=== PATIENT | female | born 1955 | race Caucasian/White ===

== ENCOUNTER 2023-07-09 10:04 | Day surgery (SDC) | payer MEDICARE, OTHER ==
[2023-07-03 15:03] VITALS: BMI 26.7
[~2023-07-09 10:04] MED LIST: HYDROmorphone 0.5 MG/0.5 ML SYRINGE IVP PRN; LACTATED RINGERS 1,000 ML IV SCH; LIDOCAINE 1% (10MG/ML) FOR IV START INTRADERMA PRN
[2023-07-09] MEDS: SODIUM CHLORIDE 0.9% 1,000 ML IV ONE (11:22)
[2023-07-09] MEDS: ONDANSETRON 4 MG/2 ML VIAL IVP ONE ×2 (11:23→14:41)
[2023-07-09 11:31] LABS: Anisocytosis Slight; Basophils % (A) 0 %; Eosinophils # (A) 0.1 k/uL (0-0.7); Eosinophils % (A) 1 %; HCT 33.6 % (34.0-46.0); HGB 10.9 gm/dL (11.4-16.0); Lymphocytes # (A) 0.6 k/uL (1.0-4.8); Lymphocytes % (A) 8 %; MCHC 32.4 g/dL (31.0-37.0); MCV 83.4 fL (80.0-100.0); Mean Platelet Volume 7.2; Monocytes # (A) 0.5 k/uL (0-1.0); Monocytes % (A) 6 %; Neutrophils # (A) 6.7 k/uL (1.3-7.7); Neutrophils % (A) 82 %; Platelet Count 259 k/uL (150-450); RBC 4.03 m/uL (3.80-5.40); RDW 16.6 % (11.5-15.5); WBC 8.1 k/uL (3.8-10.6)
[2023-07-09 11:34] VITALS: RESP 16
[2023-07-09 11:38] LABS: African American GFR (CKD) 68 (>60 ml/min/1.73 sqM); Anion Gap 5 mmol/L; Blood Urea Nitrogen 10 mg/dL (7-17); Carbon Dioxide 24 mmol/L (22-30); Chloride 102 mmol/L (98-107); Glucose 83 mg/dL (74-99); Non-African American GFR(CKD) 59 (>60 ml/min/1.73 sqM); Potassium 3.7 mmol/L (3.5-5.1); Sodium 131 mmol/L (137-145)
[2023-07-09] MEDS ORDERED: PROPOFOL 10 MG/ML 20 ML VIAL IV ONE (13:07)
[2023-07-09] MEDS ORDERED: fentaNYL (PF) 50 MCG/ML 2 ML AMP ONE (13:07)
[2023-07-09] MEDS ORDERED: LIDOCAINE 1% INJ 10MG/ML (20 ML MDV) ONE (13:07)
[2023-07-09] MEDS ORDERED: SUCCINYLCHOLINE CHLORIDE 200 MG/10 ML VIAL IV ONE (13:07)
[2023-07-09] MEDS: LIDOCAINE 1% INJ 10MG/ML (20 ML MDV) SQ ONE ×3 (13:33→13:49)
[2023-07-09] MEDS: ceFAZolin 1,000 MG in SODIUM CHLORIDE 0.9% 1,000 ML IRRIGATION ONE (14:12)
--- NOTE | 2023-07-09 14:33 | P.OP ---
Date of Procedure: 07/09/23 Preoperative Diagnosis: Vasculitis, Non functioning mediport Postoperative Diagnosis: same Procedure(s) Performed: Explantation of right Mediport Guidewire exchange and placement of new right Mediport via internal jugular access Anesthesia: ARIADNE Surgeon: Jeremias Lieberman Estimated Blood Loss (ml): 5 Pathology: none sent Condition: stable Disposition: PACU Indications for Procedure: 67 year old female with history of Vasculitis, chronic kidney disease and previous right sided Mediport presents to the operative suite for removal and replacement of Mediport. She states getting blood draws weekly and infusions and due to her poor venous system requires more permanent access. Description of Procedure: Operative narrative: After written and informed consent was obtained and all risks, benefits and competitions were described the patient was brought to the operative suite and laid in a supine position. The area of the right neck and chest was prepped and draped in the usual sterile fashion. Timeout was performed in normal fashion and antibiotics were administered prior to access. Local anesthetic was infused overlying the existing catheter at the right neck and a small incision was created over the catheter with a 15 blade scalpel. Dissection was carried down to the catheter and it was dissected free and grasped. Attention was then placed to the previous pocket and removal of the existing Mediport. An incision was created at the right chest overlying the port and dissection was carried down to the port through the capsule and the port was dissected free in a circumferential manner. The catheter was then cut and port was removed. Using the distal catheter a guidewire was placed and the catheter was removed under fluoroscopic guidance. Once removed a new 8F port was tunneled to the neck incision and breakaway sheath was placed under fluoroscopic guidance. The catheter was then placed through the breakaway sheath and the sheath was removed. The catheter was then cut to the appropriate length and the new port was placed within the revised pocket. The port was sutured to the fascia with 3-0 PDS suture. The port was assessed for patency and natalie and flushed easily and then were hep-locked. The pocket was then irri gated with antibiotic solution and the incisions were then closed in a multilayer fashion. Skin was cleansed and dressings placed. The patient tolerated procedure well and was sent to PACU for recovery.
--- NOTE | 2023-07-09 14:49 | FL ---
EXAMINATION TYPE: FL guided central line placemt Intraoperative/procedural fluoroscopic services were provided. Total fluoroscopy time is 59.1 seconds with a total of 3 submitted images to PACS. Please see the operative/procedural note for further details. DAP: 2.0878 Gycm2
[2023-07-09] MEDS: HYDROmorphone 0.5 MG/0.5 ML SYRINGE IVP ONE (14:52)
[2023-07-09 15:04] VITALS: TEMP 97.2
[2023-07-09 16:04] VITALS: BP 153/73; PULSE 83
== END 2023-07-09 16:14 ==
LOC: OR 10:04
PROVIDERS: ATTEND Surgery
DX: T82.514A Breakdown (mechanical) of infusion catheter, initial encounter (principal); I77.6 Arteritis, unspecified; N18.9 Chronic kidney disease, unspecified; Y83.8 Other surgical procedures as the cause of abnormal reaction of the patient, or of later complication, without mention of misadventure at the time of the procedure
CPT/HCPCS: 36583; 80048; 85025; 77001; C1788; J0330; J0690 ×2; J2405; J2001; J3010; J1642; J2704; J1170

== ENCOUNTER → 2024-03-27 | Outpatient (CLI) | payer MEDICARE, OTHER ==
--- NOTE | 2024-03-27 12:42 | CT ---
EXAMINATION TYPE: CT abdomen pelvis wo con DATE OF EXAM: 03/27/2024 COMPARISON: None CLINICAL INDICATION: Female, 68 years old with history of N39.9 UTI; PHH, incontence/ bladder infecti on TECHNIQUE: CT scan of the abdomen and pelvis is performed without oral or IV contrast. CT DLP: 1087.4 mGycm Automated exposure control for dose reduction was used. FINDINGS: Within the limitations of a non-contrast study, the following observations are made. The lungs are clear. There is surgical absence of the gallbladder. There is no biliary ductal dilatation. There is no organomegaly of the liver, pancreas, spleen or adrenal glands. There are no renal calcifications or hydronephrosis. There is a small hyperdense cyst of the anterior left kidney. The left kidney is moderately atrophic. The caliber of the abdominal aorta is normal and there is no retroperitoneal adenopathy or hemorrhage . The bowel loops are normal in caliber is no evidence of obstruction. No inflammatory changes are iden tified in the mesentery and there is no free intraperitoneal air or fluid. There is no pelvic mass, free fluid, abscess or adenopathy. There is mild diverticulosis of the colon without CT evidence of diverticulitis. There is surgical absence of uterus. There is a right hip prosthesis otherwise the osseous structures are intact. IMPRESSION: 1. Hyperdense cyst of the left kidney and moderate left renal atrophy. 2. No renal calcification or hydronephrosis. 3. Diverticulosis of the sigmoid colon but no evidence of acute diverticulitis. 4. Surgical absence of the gallbladder and uterus [facility], , 03/27/2024 12:40 PM
== END | disposition home or self-care (01) ==
LOC: RADCTMAIN 11:01
PROVIDERS: ATTEND Urology
CPT/HCPCS: 74176

== ENCOUNTER 2024-04-01 07:05 | Inpatient (IN) | payer MEDICARE, OTHER ==
[~2024-04-01 07:05] MED LIST changes: +GABAPENTIN 300 MG CAP PO PRN; -HYDROmorphone 0.5 MG/0.5 ML SYRINGE IVP PRN; -LACTATED RINGERS 1,000 ML IV SCH; +TRANEXAMIC 1,000 MG/100ML-NACL 1,000 MG in SALINE 1 100ML.BAG IVPB PRN; +fentaNYL (PF) 50 MCG/ML 2 ML AMP IV PRN; +fentaNYL (PF) 50 MCG/ML 2 ML AMP IVP PRN
[2024-04-01] MEDS: ACETAMINOPHEN TAB 500 MG TAB PO PRN (08:41)
[2024-04-01] MEDS: MELOXICAM 7.5 MG TAB PO PRN (08:41)
[2024-04-01] MEDS: DEXAMETHASONE SOD PHOSPHATE 4 MG/ML 1 ML VIAL IV ONE (08:42)
[2024-04-01] MEDS: ONDANSETRON 4 MG/2 ML VIAL IVP ONE (08:42)
[2024-04-01] MEDS: IV FLUID CONTINUATION 1,000 ML IV ONE (08:43)
[2024-04-01] MEDS: LACTATED RINGERS 1,000 ML IV SCH (08:43)
[2024-04-01] MEDS: HYDROCORTISONE SUCCINATE 100 MG/2 ML VIAL IV STA (08:43)
[2024-04-01] MEDS: MIDAZOLAM 2 MG/2 ML VIAL IV PRN (08:47)
[2024-04-01] MEDS ORDERED: NA PHOS,M-B/NA PHOS,DI-BA 133 ML ENEMA RECTAL PRN (08:53)
[2024-04-01] MEDS ORDERED: MAGNESIUM HYDROXIDE 2,400 MG/30 ML CUP PO PRN (08:53)
[2024-04-01] MEDS ORDERED: HYDROmorphone 0.5 MG/0.5 ML SYRINGE IVP PRN ×2 (08:53)
[2024-04-01] MEDS ORDERED: NALOXONE 0.4 MG/ML 1 ML VIAL IV PRN (08:53)
[2024-04-01] MEDS ORDERED: bisacodyL 10 MG SUPP RECTAL PRN (08:53)
--- NOTE | 2024-04-01 08:58 | P.ANPRN ---
Procedure Note - Anesthesia - Nerve Block Performed Left Adductor Canal Single Time Out Performed: Yes ([id number]) Date of Procedure: 04/01/24 Procedure Start Time: 08:50 Procedure Stop Time: 08:57 Location of Patient: PreOp Indication: Acute Post-Operative Pain, Requested by Surgeon Sedation Type: Sedate with meaningful contact maintained Preparation: Sterile Prep, Sterile Dressing Position: Supine Catheter: None Needle Types: Pajunk Needle Gauge: 21 Ultrasound used to visualize needle placement: Yes Ultrasound used to observe medication spread: Yes Injectate: 0.5% Ropivacaine (see comment for volume) (20 mL of 0.5% ropivacaine preservative-free injected after intermittent negative aspiration) Blood Aspirated: No Pain Paresthesia on Injection Noted: No Resistance on Injection: Normal Image Stored and Saved: Yes Events: Uneventful and Well Tolerated
--- NOTE | 2024-04-01 09:00 | P.ANPRN ---
Procedure Note - Anesthesia - Nerve Block Performed Left iPack Single Time Out Performed: Yes ([id number]) Date of Procedure: 04/01/24 Procedure Start Time: 08:50 Procedure Stop Time: 08:57 Location of Patient: PreOp Indication: Acute Post-Operative Pain, Requested by Surgeon Sedation Type: Sedate with meaningful contact maintained Preparation: Sterile Prep, Sterile Dressing Position: Supine Catheter: None Needle Types: Pajunk Needle Gauge: 21 Ultrasound used to visualize needle placement: Yes Ultrasound used to observe medication spread: Yes Injectate: 0.5% Ropivacaine (see comment for volume) (20 mL of block solution injected after intermittent negative aspiration , 10 mL of 0.5% ropivacaine mixed with 10 mL of preservative-free normal saline) Blood Aspirated: No Pain Paresthesia on Injection Noted: No Resistance on Injection: Normal Image Stored and Saved: Yes Events: Uneventful and Well Tolerated
[2024-04-01 09:19] LABS: Glucose,Whole Blood 75 mg/dL (70-110)
[2024-04-01] MEDS ORDERED: SODIUM CHLORIDE 0.9% (PF) 10 ML VIAL ONE (09:20)
[2024-04-01] MEDS ORDERED: ROCURONIUM 10 MG/ML (5 ML VIAL) IV ONE (09:20)
[2024-04-01] MEDS ORDERED: ROPIVACAINE 5 MG/ML 30 ML VIAL ONE (09:20)
[2024-04-01] MEDS ORDERED: TRANEXAMIC 1,000 MG/100ML-NACL PREMIX BAG ONE (09:20)
[2024-04-01] MEDS ORDERED: GLYCOPYRROLATE 0.2 MG/ML 2 ML VIAL ONE (09:20)
[2024-04-01] MEDS ORDERED: NEOSTIGMINE 1 MG/ML 10 ML VIAL ONE (09:20)
[2024-04-01] MEDS ORDERED: PHENYLEPHRINE 10 MG/ML VIAL ONE (09:20)
[2024-04-01] MEDS ORDERED: fentaNYL (PF) 50 MCG/ML 2 ML AMP ONE (09:20)
[2024-04-01] MEDS ORDERED: LIDOCAINE 1% INJ 10MG/ML (20 ML MDV) ONE (09:20)
[2024-04-01] MEDS ORDERED: PROPOFOL 10 MG/ML 20 ML VIAL IV ONE (09:20)
[2024-04-01] MEDS: ceFAZolin 1,000 MG in SODIUM CHLORIDE 0.9% 1,000 ML IRRIGATION ONE (09:49)
[2024-04-01 10:12] LABS: ALT 21 U/L (4-34); AST 18 U/L (14-36); African American GFR (CKD) 61 (>60 ml/min/1.73 sqM); Albumin 3.2 g/dL (3.5-5.0); Alkaline Phosphatase 73 U/L (38-126); Anion Gap 3 mmol/L; Blood Urea Nitrogen 19 mg/dL (7-17); Calcium 9.2 mg/dL (8.4-10.2); Carbon Dioxide 29 mmol/L (22-30); Chloride 104 mmol/L (98-107); Glucose 97 mg/dL (74-99); Non-African American GFR(CKD) 53 (>60 ml/min/1.73 sqM); Potassium 4.4 mmol/L (3.5-5.1); Sodium 136 mmol/L (137-145); Total Bilirubin 0.4 mg/dL (0.2-1.3); Total Protein 5.7 g/dL (6.3-8.2)
--- NOTE | 2024-04-01 10:33 | P.OP ---
Date of Procedure: 04/01/24 Preoperative Diagnosis: Severe osteoarthritis of the left knee with a valgus deformity Postoperative Diagnosis: Severe osteoarthritis of the left knee with a valgus deformity Procedure(s) Performed: Left total knee arthroplasty Implants: [employer] Journey II CR Oxinium Bi-cruciate stabilized femoral component size 4, left [employer] Journey nonporous tibial baseplate size 3, left [employer] Journey II, constrained articular insert, size 9 mm, Size 3-4, left [employer] Journey Iwona II resurfacing patellar component, oval, 29 mm All components were cemented using Palacos R bone cement The articulation is Oxinium on polyethylene Anesthesia: VALERIEA Surgeon: Stan José Social [employer] Political [employer] Professor #1: Bernie Luna Estimated Blood Loss (ml): 50 Pathology: none sent Condition: stable Disposition: PACU Indications for Procedure: The patient's knee is end-stage, and conservative management has failed. The operation of knee replacement has been discussed at length in the office, as well as potential risks and complications. These are inclusive of, but not limited to: Infection, bleeding, scarring, discomfort, stiffness, blood vessel and nerve damage, need for further surgery, failure to relieve symptoms, persistence, recurrence, or worsening of problems, loosening, dislocation, wear, blood clot, pulmonary embolism, , gait dysfunction, stiffness, and other risks as discussed in the office. Patient elects to proceed and the consent form has been signed. Operative Findings: The operative findings are consistent with severe osteoarthritis of the left knee with a valgus deformity Description of Procedure: The patient was seen in the preoperative area, the consent was reviewed and the operative site was marked with a skin marker. The patient verified the procedure and the operative site. An adductor canal pain catheter and an iPACK block were placed by anesthesia in the preoperative area. The patient was then brought to the operating room and positioned on the operating room table in the supine position. Preoperative antibiotics and a gram of tranexamic acid were given intravenously. A general anesthetic was administered by the anesthesia department. Care was taken to make sure that all pressure points were adequately padded. A tourniquet was placed on the upper thigh and the lower extremity was prepped with ChloraPrep and draped in usual sterile fashion. A universal time-out was then performed which confirmed the patient's name, surgical site, ALLERGIES, and consent. The lower extremity was then exsanguinated and tourniquet was inflated to 250 mmHg. A standard anterior midline approach to the knee was performed. The skin and subcutaneous tissue were sharply dissected down to the patellar tendon. A medial parapatellar arthrotomy was then performed. The knee was then extended, the patellar was everted, and the knee was flexed. The infra-patellar fat pad was removed in order to enhance exposure. The anterior horns of both menisci were excised, and a release was performed to the posterior medial aspect of the knee. On gross visual inspection, there was complete loss of articular cartilage in the medial and patellofemoral joint spaces. There was also significant cartilage damage in the lateral compartment. There were multiple periarticular osteophytes globally about the knee which were then removed with a Ronguer. The femoral canal was then opened with the 9.5 mm intramedullary drill. The 8 mm intramedullary nancy was then inserted into the femoral canal with the distal femoral cutting guide set for 5 of valgus. The distal femoral cutting block was then pinned in place. The intramedullary nancy was then removed, and the distal femur was then cut. The cutting block was then removed and the cut was checked for symmetry. The resected bone was then measured to confirm the appropriate distal femoral resection. Next, the sizing guide was then placed and set for 3 external rotation based off of the epicondylar axis and Madison's line. Pins were then placed and the drill holes, and the femur was sized with the sizing stylus. The pins were then removed, and the sizing guide was then removed. The spikes of the appropriate size femoral block was then placed into the predrilled holes, and malleted into place. Two 45 mm pins were then placed into the fixation holes on the cutting block. An bernice wing was then used to ensure there would be no notching with the anterior cut. The anterior condyles were cut without notching. The anterior chord cut was then performed, followed by the posterior cut, posterior chamfer cut, and the anterior chamfer cut. The collateral ligaments were protected during the entire process. The cutting block was then removed. Any remaining bone and osteophytes were removed from the femur with a Ronguer. Attention was then directed to the tibia. The remaining ACL was removed with a Ronguer, and the tibia was then gently subluxed forward with a large bent knee retractor. Any remaining menisci were excised. The posterior lateral corner was cauterized in order to coagulate the lateral geniculate artery. The extra medullary tibial cutting guide was then placed, set for the appropriate rotation, slope, and depth of resection. The proximal tibia cutting guide was then pinned in place. Proximal tibia was then cut and sized. A curved osteotome was then used to remove any posterior osteophytes from the distal femur. The femoral trial was placed. A reamer was then used to remove the intracondylar femoral bone the box guide. The CR box trial was then placed. The tibial trial was placed with the appropriate-sized insert. The knee was able to fully extend and flex to 130 and was stable throughout all range of mo tion. The knee was then extended and the patella was everted. Patella was then measured, and then using an osteotomy guide, the patella was cut at the appropriate level. The patellar component was sized. The patellar drill guide was placed and the patella was drilled. The patella trial was then placed. The knee was then taken through range of motion with the patella trial and the patella tracked normally using the no thumbs technique. The patella trial was then removed. The knee was then flexed and lug holes were drilled through the femoral trial and the femoral trial was then removed. The tibial was then re- exposed, and the tibial broach guide was then pinned in place after it was set for the appropriate rotation to allow for the most coverage without overhang. The tibia was then reamed and broached. The femoral canal was plugged with autologous bone. The cut surfaces of bone were then irrigated with pulsatile lavage. The knee was also irrigated with Irrisept solution. The components were then opened, the cement was mixed. Cement was placed on the backside of the femoral, tibial, and patellar components. Cement was then applied to the tibial surface and pressurized into the surface using finger pressurization technique. The tibial component was then applied and excess cement was removed after it was impacted securely noted to be flush with the cut surface. In similar fashion, the cement was applied to the cut femoral surface, pressurized and using finger pressurization the component was impacted in place. Excess cement was removed. The polyethylene spacer was then implanted and locked into position. Patellar component was then applied in a similar technique and the patellar clamp was used to hold patella in place while the cement hardened. The knee was held in full extension while the cement hardened. Once the cement had fully hardened, the knee was reinspected. Any other cement extrusion was removed the final range of motion testing showed range of motion from 0-130 with excellent stability, both medial and laterally and appropriate alignment of the leg. Patella tracked normally. After the cemented hardened, the tourniquet was released and hemostasis was obtained. A second gram of transexamic acid was given intravenously. The knee was again irrigated. The knee was again taken through range of motion and found to be stable throughout all range of motion of 0-130, and the patella tracked normally. The fascia was then closed with 0 Vicryl followed by #2 strata fix suture. The subcutaneous tissue was closed with 3-0 Vicryl and 3-0 strata fix. Exofin glue was used for the skin and placed with the knee in flexion. After the glue had dried, and Optafoam silver impregnated dressing was applied. A lightly compressive dressing was applied using web roll and Levi wrap. Patient was then transferred to the stretcher and taken to recovery room in stable condition. Sponge and needle counts were correct. The volunteer assistant CRISTINA Trujillo was required due the complexity surgery and the need for a skilled neurosurgical nurse. She assisted in positioning, draping, retraction, and closure of the wound.
[2024-04-01] MEDS: ONDANSETRON 4 MG/2 ML VIAL IVP PRN (11:10)
--- NOTE | 2024-04-01 11:32 | XR ---
EXAMINATION TYPE: XR knee limited LT DATE OF EXAM: 04/01/2024 11:28 AM INDICATION: Patient age:Female; 68 years old; Reason for study: Evaluation for Postop abnormality and alignment; PHH. COMPARISON: None. TECHNIQUE: The Left knee(s) was examined in frontal and lateral projections. FINDINGS: Status post total knee arthroplasty changes with hardware in appropriate alignment and in tact. No evidence of fracture. Subcutaneous lucencies and lucencies within the joint consistent with surgical changes. IMPRESSION: Status post total left knee arthroplasty changes with hardware intact and appropriate alignment. No f ractures identified. [facility], , 04/01/2024 11:30 AM
[2024-04-01] MEDS: HYDROmorphone 0.5 MG/0.5 ML SYRINGE IVP PRN ×2 (11:34→16:12)
[2024-04-01] MEDS ORDERED: CLINDAMYCIN 900 MG in DEXTROSE 5% IN WATER 50 ML IVPB SCH (12:00)
[2024-04-01] MEDS: SODIUM CHLORIDE 0.9% 1,000 ML IV SCH (12:54)
[2024-04-01] MEDS ORDERED: ARTIFICIAL TEARS-HYPROMELLOSE DROPS 15 ML BTL BOTH EYES PRN (14:46)
[2024-04-01] MEDS ORDERED: ALBUTEROL NEBULIZED 2.5 MG/3 ML INHALATION PRN (14:46)
[2024-04-01] MEDS ORDERED: LOPERAMIDE 2 MG CAP PO PRN (14:46)
[2024-04-01] MEDS ORDERED: NON FORMULARY DRUG (Fluocinolone Acetonide Oil [Fluocinolone Acetonide Oil 0.01% (Otic)] 2 BOTH EARS SCH (15:00)
--- NOTE | 2024-04-01 15:39 | P.CONS ---
History of Present Illness - Reason for Consult Consult date: 04/01/24 - History of Present Illness Patient is a 68-year-old female with history of COPD not on home oxygen, hypothyroidism, hyperlipidemia underwent left total knee arthroplasty on 04/01/2024. Patient stated that she has been having severe pain and mobility issue with her left knee for some time. Her past surgical history is s ignificant for right TKA x 2 and right total hip arthroplasty. Patient recently saw Dr. José and left TKA was scheduled for today. No intraoperative complications. Postop left knee x-ray is consistent with surgical changes and everything is intact with no evidence of fracture. Patient is currently postop day 0. There is moderate amount of pain in her left knee which she states is 6 out of 10. Otherwise patient denies any chest pain, shortness of breath, abdominal pain, nausea, vomiting. Internal medicine service is consulted for medical management of this patient. Review of systems: Pertinent positives and negatives as discussed in HPI, a complete review of systems was performed and all other systems are negative. Physical examination: Vital signs reviewed General: non toxic, no distress, appears at stated age, normal weight Derm: Surgical site is clean and intact. Cardiovascular: S1S2 reg, no murmur, positive dorsalis pedis pulse bilateral, no edema Lungs: CTA bilateral, no rhonchi, no rales, no accessory muscle use Abdominal: soft, nontender to palpation, no guarding Ext: muscle strength 5 out of 5 in all 4 extremities grossly, no gross muscle atrophy, no contractures, Neuro: CN II-XI grossly intact, no gross focal neuro deficits Psych: Alert, oriented, appropriate affect Assessment/Plan: Patient is a 68-year-old female with history of COPD not on home oxygen, hypothyroidism, hyperlipidemia underwent left total knee arthroplasty on 04/01/2024. Postop day 0 #Left knee pain status post left TKA Management including pain control as per orthopedic #Euvolemic hyponatremia Sodium 136, continue monitor BMP #CKD stage IIIa #Elevated creatinine Creatinine at baseline 1.07 GFR 53 Continue monitor BMP Chronic conditions: A-fib: Continue with Eliquis 5 mg p.o. twice daily COPD: Resume Ventolin as needed , Symbicort 2 puffs twice daily, prednisone 5 mg p.o. daily Urinary incontinence: Resume mirabegron GERD/acid reflux: Resume Protonix 40 mg p.o. twice daily Hypothyroidism: Resume Synthroid 50 mcg p.o. daily Anxiety: Resume trazodone 50 mg nightly DVT prophylaxis: Eliquis 5 mg p.o. twice daily I saw and evaluated the patient during the ji and critical portions of this encounter, and discussed the case in detail with the resident author of this note, I agree with the Assessment and Plan, and my changes, if any, are highlighted in blue. Past Medical History Past Medical History: Atrial Fibrillation, Asthma, COPD, CVA/TIA, GERD/Reflux, Hypertension, Renal Disease, Rheumatoid Arthritis (RA), Skin Disorder, Vascular Disorder Additional Past Medical History / Comment(s): Hx. falls, stage II kidney disease, Raynaud's, Lupus and connective tissue disease, rotator cuff issues to rt shoulder, hx Charles's Esophagus , vascularitis History of Any Multi-Drug Resistant Organisms: None Reported Past Surgical History: Cholecystectomy, Heart Catheterization With Stent, Joint Replacement, Orthopedic Surgery Additional Past Surgical History / Comment(s): Bilat shoulder, right hip, right knee x 2, bilat mediport placement, bilat. cataract surgery Past Anesthesia/Blood Transfusion Reactions: No Reported Reaction Additional Past Anesthesia/Blood Transfusion Reaction / Comm: Hx of blood transfusion-no reaction. Date of Last Stent Placement:: 08/09/23 Smoking Status: Former smoker - Past Family History Father Family Medical History: No Reported History Medications and Allergies Home Medications Medication Instructions Recorded Confirmed Type ARIPiprazole [Abilify] 2 mg PO DAILY 01/23/23 04/01/24 History Apixaban [Eliquis] 5 mg PO BID 01/23/23 04/01/24 History Bumetanide [BUMEX] 2 mg PO BID 01/23/23 04/01/24 History DULoxetine HCL [Cymbalta] 60 mg PO HS 01/23/23 04/01/24 History Fluticasone Nasal [place] [Flonase 1 spray EA NOSTRIL QA 01/23/23 04/01/24 History Nasal [place]] L.acidoph,Paracasei, B.lactis 1 cap PO BID 01/23/23 04/01/24 History [Probiotic] Levothyroxine Sodium [Synthroid] 50 mcg PO QAM 01/23/23 04/01/24 History Metoprolol Succinate [Metoprolol 12.5 mg PO DAILY 01/23/23 04/01/24 History Succinate ER] Mirabegron [Myrbetriq] 50 mg PO DAILY 01/23/23 04/01/24 History Montelukast [Singulair] 10 mg PO HS 01/23/23 04/01/24 History Potassium Chloride ER [K-Dur 20] 20 meq PO DAILY 01/23/23 04/01/24 History Pregabalin [Lyrica] 50 mg PO BID 01/23/23 04/01/24 History traMADol HCL 100 mg PO Q6H 01/23/23 04/01/24 History traZODone HCL [Desyrel] 50 mg PO HS 01/23/23 04/01/24 History traZODone HCL [Trazodone HCl] 300 mg PO HS 01/23/23 04/01/24 History Loperamide HCl [Loperamide] 2 mg PO DIRECTED PRN 07/03/23 04/01/24 History ALPRAZolam [Xanax] 0.5 mg PO TID 07/04/23 04/01/24 History Albuterol Inhaler [Ventolin Hfa 2 puff INHALATION Q4H PRN 07/04/23 03/27/24 History Inhaler] Butalb/APAP/Caff 50-325-40Mg 1 tab PO Q4H PRN 07/04/23 03/27/24 History [Fioricet 50-325-40] Fluticasone Propion/Salmeterol 1 inhalation PO BID 07/04/23 04/01/24 History [Advair 250-50 Diskus] predniSONE 5 mg PO DAILY 07/04/23 04/01/24 History tiZANidine HCL [Zanaflex] 2 mg PO Q8H PRN 07/04/23 03/27/24 History Aspirin 81 mg PO DAILY 03/27/24 04/01/24 History Carboxymethylcellulose Sodium 1 drop BOTH EYES Q8H PRN 03/27/24 03/27/24 History [Refresh Tears] Cetirizine HCl [Zyrtec] 10 mg PO DAILY 03/27/24 04/01/24 History Cholecalciferol [Vitamin D3 (25 5 tab PO DAILY 03/27/24 04/01/24 History Mcg = 1000 Iu)] Clopidogrel [Plavix] 75 mg PO DAILY 03/27/24 04/01/24 History Cyanocobalamin (Vitamin B-12) 1 tab PO DAILY 03/27/24 04/01/24 History [Vitamin B-12] Dicyclomine HCl 1 tab PO TID 03/27/24 04/01/24 History Docusate Sodium [Dok] 100 mg PO BID 03/27/24 04/01/24 History Ferrous Sulfate [Iron (65 MG 325 mg PO DAILY 03/27/24 04/01/24 History Elemental)] Lanolin/Mineral Oil [Eucerin 1 applic TOPICAL HS 03/27/24 04/01/24 History Original Lotion] Naloxone HCl 1 dose INTRANASAL DIRECTED PRN 03/27/24 03/27/24 History Naloxone HCl 1 ml IM DIRECTED PRN 03/27/24 03/27/24 History Omeprazole [PriLOSEC] 20 mg PO BID 03/27/24 04/01/24 History Sennosides/Docusate Sodium [Senna 2 tab PO BID 03/27/24 04/01/24 History Plus 8.6-50 mg Tablet] Vit C/E/Zn/Coppr/Lutein/Zeaxan 1 tab PO BID 03/27/24 04/01/24 History [Preservision Areds 2 Softgel] fluocinolone acetonide oiL 2 drops BOTH EARS Q48H 03/27/24 04/01/24 History [fluocinolone acetonide oiL 0.01% (Otic)] polyethylene glycoL 3350 [Miralax] 1 scoop PO BID 03/27/24 04/01/24 History Allergies Allergy/AdvReac Type Severity Reaction Status Date / Time cephalexin [From Keflex] Allergy Rash/Hives Verified 04/01/24 08:10 ciprofloxacin [From Cipro] Allergy Rash/Hives Verified 04/01/24 08:10 Penicillins Allergy Rash/Hives Verified 04/01/24 08:10 Sulfa (Sulfonamide Allergy "passed Verified 04/01/24 08:10 Antibiotics) out and quit breathing" Physical Exam Osteopathic Statement: *. No significant issues noted on an osteopathic structural exam other than those noted in the History and Physical/Consult. Vitals: Vital Signs Temp Pulse Pulse Resp BP Pulse Ox 04/01/24 13:41 98.1 F 57 L 16 121/71 99 04/01/24 12:04 60 16 145/67 04/01/24 11:48 61 16 135/61 96 04/01/24 11:33 63 18 162/69 99 04/01/24 11:18 62 18 156/66 100 04/01/24 11:03 97.3 F L 72 18 147/66 100 04/01/24 09:09 59 L 15 155/70 100 04/01/24 08:00 98.4 F 62 18 131/63 96 Intake and Output 04/01/24 04/01/24 04/01/24 06:59 14:59 22:59 Intake Total 751 Output Total 50 Balance 701 Intake: IV 751 Output: Estimated Blood Loss 50 Other: Weight 88.904 kg Results CBC & Chem 7: 04/01/24 08:31 Labs: Abnormal Lab Results - Last 24 Hours (Table) 04/01/24 Range/Units 08:31 Sodium 136 L (137-145) mmol/L BUN 19 H (7-17) mg/dL Creatinine 1.07 H (0.52-1.04) mg/dL Total Protein 5.7 L (6.3-8.2) g/dL Albumin 3.2 L (3.5-5.0) g/dL
[2024-04-01] MEDS: LEVOTHYROXINE 50 MCG TAB PO SCH (15:50)
[2024-04-01] MEDS: Mirabegron [Myrbetriq] 50 MG Tab.Er.24h PO SCH (15:50)
[2024-04-01] MEDS: FLUTICASONE NASAL 50MCG/SPRAY 16GM BTL EA NOSTRIL SCH (15:51)
[2024-04-01] MEDS: PANTOPRAZOLE 40 MG TABLET PO SCH (16:10)
[2024-04-01] MEDS: DICYCLOMINE 20 MG TAB PO SCH (16:10)
[2024-04-01] MEDS: CYANOCOBALAMIN 500 MCG TAB PO SCH (16:10)
[2024-04-01] MEDS: FERROUS SULFATE 325 MG TAB PO SCH (16:10)
[2024-04-01] MEDS: POTASSIUM CHLORIDE ER 20 MEQ TAB.ER PO SCH (17:26)
[2024-04-01] MEDS ORDERED: SENNOSIDES-DOCUSATE SODIUM 1 EACH TAB PO SCH (21:00)
[2024-04-01] MEDS: MONTELUKAST 10 MG TAB PO SCH (21:00)
[2024-04-01] MEDS: DOCUSATE 100 MG CAP PO SCH (21:00)
[2024-04-01] MEDS: DULoxetine HCL 60 MG CAPSULE.DR PO SCH (21:00)
[2024-04-01] MEDS: LACTOBACILLUS ACIDOPHILUS/PECT 1 EACH CAPSULE PO SCH (21:00)
[2024-04-01] MEDS: PREGABALIN 50 MG CAP PO SCH (21:00)
[2024-04-01] MEDS: MINERAL OIL-WHITE PETROLATUM 120 GM JAR TOPICAL SCH (21:01)
[2024-04-01] MEDS: SYMBICORT 80-4.5 MCG INHALER INHALATION SCH (21:57)
[2024-04-01] MEDS: traZODone HCL 50 MG TAB PO SCH (22:47)
[2024-04-01] MEDS: SENNOSIDES-DOCUSATE SODIUM 1 EACH TAB PO SCH (22:47)
[2024-04-02 08:44] LABS: Basophils # (A) 0.02 X 10*3/uL (0.00-0.10); Basophils % (A) 0.2 %; Eosinophils # (A) 0.03 X 10*3/uL (0.04-0.35); Eosinophils % (A) 0.3 %; HCT 29.8 % (37.2-46.3); HGB 9.1 g/dL (12.0-15.0); Lymphocytes # (A) 0.76 X 10*3/uL (0.90-5.00); Lymphocytes % (A) 7.6 %; MCH 26.1 pg (27.0-32.0); MCHC 30.5 g/dL (32.0-37.0); MCV 85.4 FL (80.0-97.0); Mean Platelet Volume 10.4 FL (9.5-12.2); Monocytes # (A) 0.59 X 10*3/uL (0.20-1.00); Monocytes % (A) 5.9 %; NRBC Per 100 WBC 0 X 10*3/uL (0.00-0.01); Neutrophils # (A) 8.58 X 10*3/uL (1.80-7.70); Neutrophils % (A) 85.2 %; Platelet Count 228 X 10*3/uL (140-440); RBC 3.49 X 10*6/uL (4.10-5.20); RDW 18.4 % (11.5-14.5); WBC 10.06 X 10*3/uL (4.50-10.00)
[2024-04-02] MEDS: ARIPiprazole 2 MG TAB PO SCH (10:17)
[2024-04-02] MEDS: APIXABAN 5 MG TAB PO SCH (10:17)
[2024-04-02] MEDS: CLOPIDOGREL 75 MG TAB PO SCH (10:18)
[2024-04-02] MEDS: CHOLECALCIFEROL 125 MCG (5000 IU) TABLET PO SCH (10:18)
[2024-04-02] MEDS: predniSONE 5 MG TAB PO SCH (10:18)
[2024-04-02] MEDS: METOPROLOL SUCCINATE (ER) 25 MG TAB.ER.24H PO SCH (10:57)
--- NOTE | 2024-04-02 11:32 | P.PN ---
Subjective Progress Note Date: 04/02/24 Subjective: Patient seen and examined at the bedside. No acute events overnight. All Systems reviewed and pertinent positives and negatives noted in HPI, all other symptoms are negative Objective: Physical examination: Vital signs reviewed General: non toxic, no distress, appears at stated age, normal weight Derm: Surgical site is clean and intact. Cardiovascular: S1S2 reg, no murmur, positive dorsalis pedis pulse bilateral, no edema Lungs: CTA bilateral, no rhonchi, no rales, no accessory muscle use Abdominal: soft, nontender to palpation, no guarding Ext: muscle strength 5 out of 5 in all 4 extremities grossly, no gross muscle atrophy, no contractures, Neuro: CN II-XI grossly intact, no gross focal neuro deficits Psych: Alert, oriented, appropriate affect Labs: WBC 9.06, hemoglobin 9.1, MCV 85.4, sodium 136, creatinine 1.16 Images: No new imaging Assessment/Plan: Patient is a 68-year-old female with history of COPD not on home oxygen, hypothyroidism, hyperlipidemia underwent left total knee arthroplasty on 04/01/2024. Postop day 1 #Left knee pain status post left TKA Management including pain control as per orthopedic #Normocytic anemia secondary above, anticipated outcome Hemoglobin 9.1, MCV 85.4, Continue monitor CBC #Euvolemic hyponatremia, mild Sodium 136, continue monitor BMP #CKD stage IIIa #Elevated creatinine Creatinine at baseline 1.07 GFR 53 Continue monitor BMP Chronic conditions: A-fib: Continue with Eliquis 5 mg p.o. twice daily COPD: Resume Ventolin as needed , Symbicort 2 puffs twice daily, prednisone 5 mg p.o. daily Urinary incontinence: Resume mirabegron GERD/acid reflux: Resume Protonix 40 mg p.o. twice daily Hypothyroidism: Resume Synthroid 50 mcg p.o. daily Anxiety: Resume trazodone 50 mg nightly, Xanax 0.5 mg p.o. 3 times daily, Abilify 2 mg daily CAD status post stent-continue Plavix 75 daily, hold aspirin, patient should ideally not be on triple therapy Polypharmacy - outpatient follow-up with PCP F: P.o. E: Replete as needed N: Regular diet A: PT OT DVT ppx: Eliquis 5 mg p.o. twice daily Code Status: Full code Anticipated discharge place: Pending clinical course Anticipated discharge date: Per orthopedic Patient is otherwise medically optimized for discharge. Thank you for allowing us to participate in the care of this pleasant patient. Do not hesitate to contact us with questions. Someone can be reached from the [facility] hospitalist group all hours of the day at [phone] or via perfect serve. I have seen and evaluated the patient today. Discussed with the resident and agree with the residents finding and plan as documented in the resident's note. Changes highlighted in blue font. Objective - Vital Signs Vital signs: Vital Signs Temp 99.3 F 04/02/24 07:37 Pulse 87 04/02/24 07:37 Resp 16 04/02/24 07:37 BP 118/65 04/02/24 07:37 Pulse Ox 94 L 04/02/24 09:38 FiO2 Intake & Output 04/01/24 04/02/24 04/02/24 18:59 06:59 18:59 Intake Total 751 Output Total 50 Balance 701 Weight 88.904 kg Intake: IV 751 Output: Estimated Blood Loss 50 Other: Voiding Method External Catheter # Voids 0 - Labs CBC & Chem 7: 04/02/24 04:02 04/02/24 11:44 Labs: Abnormal Lab Results - Last 24 Hours (Table) 04/02/24 Range/Units 04:02 WBC 10.06 H (4.50-10.00) X 10*3/uL RBC 3.49 L (4.10-5.20) X 10*6/uL Hgb 9.1 L (12.0-15.0) g/dL Hct 29.8 L (37.2-46.3) % MCH 26.1 L (27.0-32.0) pg MCHC 30.5 L (32.0-37.0) g/dL RDW 18.4 H (11.5-14.5) % Immature Gran # 0.08 H (0.00-0.04) X 10*3/uL Neutrophils # 8.58 H (1.80-7.70) X 10*3/uL Lymphocytes # 0.76 L (0.90-5.00) X 10*3/uL Eosinophils # 0.03 L (0.04-0.35) X 10*3/uL
[2024-04-02 12:15] LABS: African American GFR (CKD) 55 (>60 ml/min/1.73 sqM); Anion Gap 5 mmol/L; Blood Urea Nitrogen 21 mg/dL (7-17); Calcium 8.2 mg/dL (8.4-10.2); Carbon Dioxide 27 mmol/L (22-30); Chloride 104 mmol/L (98-107); Glucose 94 mg/dL (74-99); Non-African American GFR(CKD) 48 (>60 ml/min/1.73 sqM); Potassium 3.7 mmol/L (3.5-5.1); Sodium 136 mmol/L (137-145)
--- NOTE | 2024-04-02 13:27 | P.PN ---
Subjective Progress Note Date: 04/02/24 This is a 68-year-old fe male who is status post left total knee arthroplasty. This is postoperative day #1 and patient is seen and evaluated at bedside today. Patient states that her pain is well-controlled today. Patient states that she is normally wheelchair-bound. Patient states that she has not worked with physical therapy yet today. Objective - Vital Signs Vital signs: Vital Signs Temp 99.3 F 04/02/24 07:37 Pulse 87 04/02/24 07:37 Resp 16 04/02/24 07:37 BP 118/65 04/02/24 07:37 Pulse Ox 94 L 04/02/24 09:38 FiO2 Intake & Output 04/01/24 04/02/24 04/02/24 18:59 06:59 18:59 Intake Total 751 Output Total 50 Balance 701 Weight 88.904 kg Intake: IV 751 Output: Estimated Blood Loss 50 Other: Voiding Method External Catheter # Voids 0 - Exam Vital signs are stable. Patient is in no acute distress and is alert and oriented 3. Calf is soft and nontender to palpation. Dressing is clean, dry, and intact. Patient has full foot and ankle motion without pain or difficulty. Sensation intact. Neurovascular status and circulatory status are intact. - Labs CBC & Chem 7: 04/02/24 04:02 04/02/24 11:44 Labs: Abnormal Lab Results - Last 24 Hours (Table) 04/02/24 04/02/24 Range/Units 04:02 11:44 WBC 10.06 H (4.50-10.00) X 10*3/uL RBC 3.49 L (4.10-5.20) X 10*6/uL Hgb 9.1 L (12.0-15.0) g/dL Hct 29.8 L (37.2-46.3) % MCH 26.1 L (27.0-32.0) pg MCHC 30.5 L (32.0-37.0) g/dL RDW 18.4 H (11.5-14.5) % Immature Gran # 0.08 H (0.00-0.04) X 10*3/uL Neutrophils # 8.58 H (1.80-7.70) X 10*3/uL Lymphocytes # 0.76 L (0.90-5.00) X 10*3/uL Eosinophils # 0.03 L (0.04-0.35) X 10*3/uL Sodium 136 L (137-145) mmol/L BUN 21 H (7-17) mg/dL Creatinine 1.16 H (0.52-1.04) mg/dL Calcium 8.2 L (8.4-10.2) mg/dL Assessment and Plan (1) Osteoarthritis of left knee Current Visit: Yes Status: Acute Code(s): M17.12 - UNILATERAL PRIMARY OSTEOARTHRITIS, LEFT KNEE SNOMED Code(s): 727735915610458 (2) Status post total left knee replacement Current Visit: Yes Status: Acute Code(s): Z96.652 - PRESENCE OF LEFT ARTIFICIAL KNEE JOINT SNOMED Code(s): 1872892786066 Plan: #1 Continue with routine postoperative care and pain control, leave dressing in place for 7 days. #2 Eliquis and Plavix have been resumed. #3 Physical therapy today. #4 Appreciate input from internal medicine. #5 [facility] tomorrow.
[2024-04-02] MEDS ORDERED: POTASSIUM CHLORIDE ER 20 MEQ TAB.ER PO SCH (15:00)
[2024-04-02] MEDS: ALPRAZolam 0.5 MG TAB PO SCH (17:02)
[2024-04-03] MEDS ORDERED: HYDROcodone/APAP 7.5-325MG 1 EACH TAB PO PRN (08:14)
[2024-04-03] MEDS: HYDROcodone/APAP 7.5-325MG 1 EACH TAB PO PRN (09:35)
[2024-04-03 10:01] VITALS: RESP 15
--- NOTE | 2024-04-03 11:05 | P.PN ---
Subjective Progress Note Date: 04/03/24 Subjective: Patient seen and examined at the bedside. No acute events overnight. All Systems reviewed and pertinent positives and negatives noted in HPI, all other symptoms are negative Objective: Physical examination: Vital signs reviewed General: non toxic, no distress, appears at stated age, normal weight Derm: Surgical site is clean and intact. Cardiovascular: S1S2 reg, no murmur, positive dorsalis pedis pulse bilateral, no edema Lungs: CTA bilateral, no rhonchi, no rales, no accessory muscle use Abdominal: soft, nontender to palpation, no guarding Ext: muscle strength 5 out of 5 in all 4 extremities grossly, no gross muscle atrophy, no contractures, Neuro: CN II-XI grossly intact, no gross focal neuro deficits Psych: Alert, oriented, appropriate affect Labs: No new labs Images: No new imaging Assessment/Plan: Patient is a 68-year-old female with history of COPD not on home oxygen, hypothyroidism, hyperlipidemia underwent left total knee arthroplasty on 04/01/2024. Postop day 2 #Left knee pain status post left TKA Management including pain control as per orthopedic #Normocytic anemia secondary above, anticipated outcome Hemoglobin 9.1, MCV 85.4, Continue monitor CBC #Euvolemic hyponatremia, mild Sodium 136, continue monitor BMP #CKD stage IIIa #Elevated creatinine Creatinine at baseline GFR 53 Continue monitor BMP Chronic conditions: A-fib: Continue with Eliquis 5 mg p.o. twice daily COPD: Resume Ventolin as needed , Symbicort 2 puffs twice daily, prednisone 5 mg p.o. daily Urinary incontinence: Resume mirabegron GERD/acid reflux: Resume Protonix 40 mg p.o. twice daily Hypothyroidism: Resume Synthroid 50 mcg p.o. daily Anxiety: Resume trazodone 50 mg nightly, Xanax 0.5 mg p.o. 3 times daily, Abilify 2 mg daily CAD status post stent-continue Plavix 75 daily, hold aspirin, patient should ideally not be on triple therapy Polypharmacy - outpatient follow-up with PCP F: P.o. E: Replete as needed N: Regular diet A: PT OT DVT ppx: Eliquis 5 mg p.o. twice daily Code Status: Full code Anticipated discharge place: Pending clinical course Anticipated discharge date: Per orthopedic Patient is otherwise medically optimized for discharge. Thank you for allowing us to participate in the care of this pleasant patient. Do not hesitate to contact us with questions. Someone can be reached from the [facility] [place] hospitalist group all hours of the day at [phone] or via perfect serve. Objective - Vital Signs Vital signs: Vital Signs Temp 97.9 F 04/03/24 09:59 Pulse 105 H 04/03/24 09:59 Resp 15 04/03/24 09:59 BP 168/78 04/03/24 09:59 Pulse Ox 95 04/03/24 09:15 FiO2 Intake & Output 04/02/24 04/03/24 04/03/24 18:59 06:59 18:59 Output Total 850 700 Balance -850 -700 Output: Urine 850 700 Other: Voiding Method External Catheter External Catheter External Catheter - Labs CBC & Chem 7: 04/02/24 04:02 04/02/24 11:44 Labs: Abnormal Lab Results - Last 24 Hours (Table) 04/02/24 Range/Units 11:44 Sodium 136 L (137-145) mmol/L BUN 21 H (7-17) mg/dL Creatinine 1.16 H (0.52-1.04) mg/dL Calcium 8.2 L (8.4-10.2) mg/dL
[2024-04-03 12:59] VITALS: BP 131/70; PULSE 96; TEMP 98.8
--- NOTE | 2024-04-03 13:13 | P.DS ---
Providers Date of admission: 04/01/24 07:06 Expected date of discharge: 04/03/24 Attending physician: Stan José Consults: 04/01/24 08:53 Consult Physician Routine Consulting Provider: Donna Saba Consult Reason/Comments: medical management and anticoagulation Do you want consulting provider notified?: Yes Primary care physician: Loren Zazueta, DO - Discharge Diagnosis(es) (1) Osteoarthritis of left knee Current Visit: Yes Status: Acute (2) Status post total left knee replacement Current Visit: Yes Status: Acute Hospital Course: This is a 68-year-old female with known history of degenerative arthritis of the left knee. The patient presented for evaluation as an outpatient. After discussion and consideration patient elects to proceed with total knee arthroplasty. The patient is seen preoperatively by Dr. José and medically cleared for surgery by their primary care physician. Patient is admitted to [facility] on 04/01/2024 for total knee arthroplasty. The procedure is performed without complication or sequelae. The patient is doing well postoperatively. Labs and vital signs are stable on day of discharge. On day of discharge patient's knee incision is healing well. There is minimal erythema. There is no drainage noted at this time. There is minimal soft tissue swelling to the knee. Patient has full foot and ankle motion without difficulty or pain. Calf is soft and nontender to palpation. Neurovascular status to the left lower extremity is intact. Patient is discharged to [facility] in good condition. Please see med rec for accurate list of home medications. Plan - Discharge Summary Discharge Rx Participant: No New Discharge Prescriptions: New Sennosides [Senokot] 2 tab PO DAILY PRN #60 tablet PRN Reason: Constipation HYDROcodone/APAP 7.5-325MG [[place] 7.5-325] 1 - 2 tab PO Q6H PRN #32 tab PRN Reason: Pain Continue Potassium Chloride ER [K-Dur 20] 20 meq PO DAILY Apixaban [Eliquis] 5 mg PO BID Bumetanide [BUMEX] 2 mg PO BID traZODone HCL 300 mg PO HS traZODone HCL [Desyrel] 50 mg PO HS Montelukast [Singulair] 10 mg PO HS Mirabegron [Myrbetriq] 50 mg PO DAILY Metoprolol Succinate [Metoprolol Succinate ER] 12.5 mg PO DAILY Fluticasone Nasal [place] [Flonase Nasal [place]] 1 spray EA NOSTRIL QAM ARIPiprazole [Abilify] 2 mg PO DAILY Loperamide HCl [Loperamide] 2 mg PO DIRECTED PRN PRN Reason: Diarrhea Fluticasone Propion/Salmeterol [Advair 250-50 Diskus] 1 inhalation PO BID Butalb/APAP/Caff 50-325-40Mg [Fioricet 50-325-40] 1 tab PO Q4H PRN PRN Reason: severe H/A Albuterol Inhaler [Ventolin Hfa Inhaler] 2 puff INHALATION Q4H PRN PRN Reason: SOB and wheezing predniSONE 5 mg PO DAILY Omeprazole [PriLOSEC] 20 mg PO BID Naloxone HCl 1 ml IM DIRECTED PRN PRN Reason: opiod overdose Ferrous Sulfate [Iron (65 MG Elemental)] 325 mg PO DAILY Docusate Sodium [Dok] 100 mg PO BID Clopidogrel [Plavix] 75 mg PO DAILY Carboxymethylcellulose Sodium [Refresh Tears] 1 drop BOTH EYES Q8H PRN PRN Reason: dry eyes Sennosides/Docusate Sodium [Senna Plus 8.6-50 mg Tablet] 2 tab PO BID Pregabalin [Lyrica] 50 mg PO BID L.acidoph,Paracasei, B.lactis [Probiotic] 1 cap PO BID Levothyroxine Sodium [Synthroid] 50 mcg PO QAM DULoxetine HCL [Cymbalta] 60 mg PO HS ALPRAZolam [Xanax] 0.5 mg PO TID Vit C/E/Zn/Coppr/Lutein/Zeaxan [Preservision Areds 2 Softgel] 1 tab PO BID Naloxone HCl 1 dose INTRANASAL DIRECTED PRN PRN Reason: opiod overdose polyethylene glycoL 3350 [Miralax] 1 scoop PO BID fluocinolone acetonide oiL [fluocinolone acetonide oiL 0.01% (Otic)] 2 drops BOTH EARS Q48H Lanolin/Mineral Oil [Eucerin Original Lotion] 1 applic TOPICAL HS Dicyclomine HCl 1 tab PO TID Cyanocobalamin (Vitamin B-12) [Vitamin B-12] 1 tab PO DAILY Cholecalciferol [Vitamin D3 (25 Mcg = 1000 Iu)] 5 tab PO DAILY Cetirizine HCl [Zyrtec] 10 mg PO DAILY Discontinued Aspirin 81 mg PO DAILY No Action traMADol HCL 100 mg PO Q6H tiZANidine HCL [Zanaflex] 2 mg PO Q8H PRN PRN Reason: spacicity and pain Discharge Medication List ARIPiprazole [Abilify] 2 mg PO DAILY 01/23/23 [History] Apixaban [Eliquis] 5 mg PO BID 01/23/23 [History] Bumetanide [BUMEX] 2 mg PO BID 01/23/23 [History] DULoxetine HCL [Cymbalta] 60 mg PO HS 01/23/23 [History] Fluticasone Nasal [place] [Flonase Nasal [place]] 1 spray EA NOSTRIL QAM 01/23/23 [History] L.acidoph,Paracasei, B.lactis [Probiotic] 1 cap PO BID 01/23/23 [History] Levothyroxine Sodium [Synthroid] 50 mcg PO QAM 01/23/23 [History] Metoprolol Succinate [Metoprolol Succinate ER] 12.5 mg PO DAILY 01/23/23 [History] Mirabegron [Myrbetriq] 50 mg PO DAILY 01/23/23 [History] Montelukast [Singulair] 10 mg PO HS 01/23/23 [History] Potassium Chloride ER [K-Dur 20] 20 meq PO DAILY 01/23/23 [History] Pregabalin [Lyrica] 50 mg PO BID 01/23/23 [History] traMADol HCL 100 mg PO Q6H 01/23/23 [History] traZODone HCL 300 mg PO HS 01/23/23 [History] traZODone HCL [Desyrel] 50 mg PO HS 01/23/23 [History] Loperamide HCl [Loperamide] 2 mg PO DIRECTED PRN 07/03/23 [History] ALPRAZolam [Xanax] 0.5 mg PO TID 07/04/23 [History] Albuterol Inhaler [Ventolin Hfa Inhaler] 2 puff INHALATION Q4H PRN 07/04/23 [History] Butalb/APAP/Caff 50-325-40Mg [Fioricet 50-325-40] 1 tab PO Q4H PRN 07/04/23 [History] Fluticasone Propion/Salmeterol [Advair 250-50 Diskus] 1 inhalation PO BID 07/04/23 [History] predniSONE 5 mg PO DAILY 07/04/23 [History] tiZANidine HCL [Zanaflex] 2 mg PO Q8H PRN 07/04/23 [History] Carboxymethylcellulose Sodium [Refresh Tears] 1 drop BOTH EYES Q8H PRN 03/27/24 [History] Cetirizine HCl [Zyrtec] 10 mg PO DAILY 03/27/24 [History] Cholecalciferol [Vitamin D3 (25 Mcg = 1000 Iu)] 5 tab PO DAILY 03/27/24 [History] Clopidogrel [Plavix] 75 mg PO DAILY 03/27/24 [History] Cyanocobalamin (Vitamin B-12) [Vitamin B-12] 1 tab PO DAILY 03/27/24 [History] Dicyclomine HCl 1 tab PO TID 03/27/24 [History] Docusate Sodium [Dok] 100 mg PO BID 03/27/24 [History] Ferrous Sulfate [Iron (65 MG Elemental)] 325 mg PO DAILY 03/27/24 [History] Lanolin/Mineral Oil [Eucerin Original Lotion] 1 applic TOPICAL HS 03/27/24 [History] Naloxone HCl 1 dose INTRANASAL DIRECTED PRN 03/27/24 [History] Naloxone HCl 1 ml IM DIRECTED PRN 03/27/24 [History] Omeprazole [PriLOSEC] 20 mg PO BID 03/27/24 [History] Sennosides/Docusate Sodium [Senna Plus 8.6-50 mg Tablet] 2 tab PO BID 03/27/24 [History] Vit C/E/Zn/Coppr/Lutein/Zeaxan [Preservision Areds 2 Softgel] 1 tab PO BID 03/27/24 [History] fluocinolone acetonide oiL [fluocinolone acetonide oiL 0.01% (Otic)] 2 drops BOTH EARS Q48H 03/27/24 [History] polyethylene glycoL 3350 [Miralax] 1 scoop PO BID 03/27/24 [History] HYDROcodone/APAP 7.5-325MG [[place] 7.5-325] 1 - 2 tab PO Q6H PRN #32 tab 04/03/24 [Rx] Sennosides [Senokot] 2 tab PO DAILY PRN #60 tablet 04/03/24 [Rx] Follow up Appointment(s)/Referral(s): Stan José DO [Doctor of Osteopathic Medicine] - 04/14/24 2:30 pm (with Bernie) Activity/Diet/Wound Care/Special Instructions: Weightbearing as tolerated with a walker. CPM 5-6h daily as tolerated. Leave dressing intact. Dressing may be removed by home care nurse or by patient in 7 days. Then change dressing twice daily until follow up. May shower with initial dressing intact and after removal. If dressing become saturated, please remove. Recommend use of compression stockings daily until follow up to help prevent swelling and blood clots. May remove at night before sleeping. Please is to resume Eliquis and Plavix. Please follow up with [facility] and call with any questions or concerns, . Discharge Disposition: TRANSFER TO SNF/ECF
== END 2024-04-03 17:53 | DRG 470 ==
LOC: OR 07:05 → 4SSUR 07:06
PROVIDERS: ADMIT Orthopaedic Surgery; ATTEND Orthopaedic Surgery
PROC: 0SRD069 Replacement of Left Knee Joint with Oxidized Zirconium on Polyethylene Synthetic Substitute, Cemented, Open Approach (ICD-10-PCS; principal; 2024-04-01 09:05)
DX: M17.12 Unilateral primary osteoarthritis, left knee (principal); E87.1 Hypo-osmolality and hyponatremia; E03.9 Hypothyroidism, unspecified; F41.9 Anxiety disorder, unspecified; I12.9 Hypertensive chronic kidney disease with stage 1 through stage 4 chronic kidney disease, or unspecified chronic kidney disease; I25.10 Atherosclerotic heart disease of native coronary artery without angina pectoris; K21.9 Gastro-esophageal reflux disease without esophagitis; R32 Unspecified urinary incontinence; N18.31 Chronic kidney disease, stage 3a; M06.9 Rheumatoid arthritis, unspecified; J44.89 Other specified chronic obstructive pulmonary disease; M32.9 Systemic lupus erythematosus, unspecified; M21.062 Valgus deformity, not elsewhere classified, left knee; D63.1 Anemia in chronic kidney disease; K22.70 Barrett's esophagus without dysplasia; I73.00 Raynaud's syndrome without gangrene; I48.91 Unspecified atrial fibrillation; Z96.641 Presence of right artificial hip joint; Z96.651 Presence of right artificial knee joint; Z95.5 Presence of coronary angioplasty implant and graft; Z79.899 Other long term (current) drug therapy; Z79.01 Long term (current) use of anticoagulants; Z79.02 Long term (current) use of antithrombotics/antiplatelets; Z79.51 Long term (current) use of inhaled steroids; Z79.82 Long term (current) use of aspirin; Z79.890 Hormone replacement therapy; Z87.891 Personal history of nicotine dependence; Z99.3 Dependence on wheelchair
CPT/HCPCS: 64447; 64999; 80048; 80053; 85025; 94640; 94760

== ENCOUNTER 2024-06-11 07:35 | Day surgery (SDC) | payer MEDICARE, OTHER ==
--- NOTE | 2024-06-10 14:36 | P.GSHP ---
History of Present Illness H&P Date: 06/10/24 -year-old female referred referred to me because of recurring urine infection. The patient is wheelchair-bound due to bad knee and gait problems. She lives at the [facility]. Patient was evaluated and found to have constant urinary urgency. She has incontinence. Due to her immobility and size she was unable to be evaluated in the office. She needs anesthetic cystoscopy and treatments as indicated. There is no evidence of stones. There is no obvious history of fistula. She did have a CT scan of the abdomen and pelvis which was unremarkable other than some mild left renal atrophy and renal cyst. Patient is allergic to penicillin and sulfa. Past Medical History Past Medical History: Atrial Fibrillation, COPD, CVA/TIA, GERD/Reflux, Hypertension, Renal Disease, Rheumatoid Arthritis (RA), Skin Disorder, Vascular Disorder Additional Past Medical History / Comment(s): Pt states, "I have a monitor under my skin in the middle of my chest that monitors my heart through my phone."Falls- Pt states, "I passed out in August of 2022." "I wasn't found for 3 days." "I went to [facility] and the ER said possible TIA." "My speech was slurred at that episode." "It's good now." "I didn't have any further testing.", stage II kidney disease, Raynaud's, Lupus and connective tissue disease, rotator cuff issues to rt shoulder, 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 History of Any Multi-Drug Resistant Organisms: None Reported Past Surgical History: Cholecystectomy, Joint Replacement, Orthopedic Surgery Additional Past Surgical History / Comment(s): Bilat shoulder, right hip, right knee x 2, bi lat mediport, cataracts bi lat. Past Anesthesia/Blood Transfusion Reactions: No Reported Reaction Additional Past Anesthesia/Blood Transfusion Reaction / Comment(s): Hx of blood transfusion-no reaction. Date of Last Stent Placement:: 08/09/23 Smoking Status: Former smoker - Past Family History Father Family Medical History: No Reported History Medications and Allergies Home Medications Medication Instructions Recorded Confirmed Type Bumetanide [BUMEX] 1 mg PO BID 01/23/23 06/09/24 History DULoxetine HCL [Cymbalta] 60 mg PO HS 01/23/23 06/09/24 History Fluticasone Nasal [place] [Flonase 1 spray EA NOSTRIL QA 01/23/23 06/09/24 History Nasal [place]] Levothyroxine Sodium [Synthroid] 50 mcg PO QAM 01/23/23 06/09/24 History Metoprolol Succinate [Metoprolol 12.5 mg PO DAILY 01/23/23 06/09/24 History Succinate ER] Mirabegron [Myrbetriq] 50 mg PO DAILY 01/23/23 06/09/24 History Montelukast [Singulair] 10 mg PO HS 01/23/23 06/09/24 History Potassium Chloride ER [K-Dur 20] 20 meq PO DAILY 01/23/23 06/09/24 History Pregabalin [Lyrica] 50 mg PO BID 01/23/23 06/09/24 History traMADol HCL 100 mg PO Q6H 01/23/23 06/09/24 History traZODone HCL 300 mg PO 01/23/23 06/09/24 History traZODone HCL [Desyrel] 50 mg PO HS 01/23/23 06/09/24 History ALPRAZolam [Xanax] 0.5 mg PO TID 07/04/23 06/09/24 History Albuterol Inhaler [Ventolin Hfa 2 puff INHALATION Q4H PRN 07/04/23 06/09/24 History Inhaler] Butalb/APAP/Caff 50-325-40Mg 1 tab PO Q4H PRN 07/04/23 06/09/24 History [Fioricet 50-325-40] Fluticasone Propion/Salmeterol 1 inhalation PO BID 07/04/23 06/09/24 History [Advair 250-50 Diskus] predniSONE 5 mg PO DAILY 07/04/23 06/09/24 History tiZANidine HCL [Zanaflex] 2 mg PO Q8H PRN 07/04/23 06/09/24 History Carboxymethylcellulose Sodium 1 drop BOTH EYES Q8H PRN 03/27/24 06/09/24 History [Refresh Tears] Cetirizine HCl [Zyrtec] 10 mg PO DAILY 03/27/24 06/09/24 History Cholecalciferol [Vitamin D3 (25 5 tab PO DAILY 03/27/24 06/09/24 History Mcg = 1000 Iu)] Cyanocobalamin (Vitamin B-12) 1 tab PO DAILY 03/27/24 06/09/24 History [Vitamin B-12] Dicyclomine HCl 1 tab PO TID 03/27/24 06/09/24 History Docusate Sodium [Dok] 100 mg PO BID 03/27/24 06/09/24 History Ferrous Sulfate [Iron (65 MG 325 mg PO DAILY 03/27/24 06/09/24 History Elemental)] Lanolin/Mineral Oil [Eucerin 1 applic TOPICAL HS 03/27/24 06/09/24 History Original Lotion] Naloxone HCl 1 dose INTRANASAL DIRECTED PRN 03/27/24 06/09/24 History Naloxone HCl 1 ml IM DIRECTED PRN 03/27/24 06/09/24 History Omeprazole [PriLOSEC] 20 mg PO BID 03/27/24 06/09/24 History Sennosides/Docusate Sodium [Senna 2 tab PO BID 03/27/24 06/09/24 History Plus 8.6-50 mg Tablet] Vit C/E/Zn/Coppr/Lutein/Zeaxan 1 tab PO BID 03/27/24 06/09/24 History [Preservision Areds 2 Softgel] fluocinolone acetonide oiL 2 drops BOTH EARS Q48H 03/27/24 06/09/24 History [fluocinolone acetonide oiL 0.01% (Otic)] polyethylene glycoL 3350 [Miralax] 1 scoop PO BID 03/27/24 06/09/24 History Sennosides [Senokot] 2 tab PO DAILY PRN #60 tablet 04/03/24 06/09/24 Rx Acetaminophen [Tylenol 8 Hour] 650 mg PO Q6H PRN 06/09/24 06/09/24 History Ascorbic Acid [Vitamin C] 500 mg PO DAILY 06/09/24 06/09/24 History Bacillus Coagulans [Probiotic] 1 each PO DAILY 06/09/24 06/09/24 History Calcium Carbonate 500 mg PO DAILY 06/09/24 06/09/24 History Diphenox-Atrop 2.5-0.025 mg 1 - 2 tab PO QID PRN 06/09/24 06/09/24 History [Lomotil] Fluticasone Propionate [Flonase 1 spray INHALATION DAILY 06/09/24 06/09/24 History Allergy Relief] Magnesium Hydroxide [Milk of 400 mg PO DAILY PRN 06/09/24 06/09/24 History Magnesia] Psyllium Husk 100% [Metamucil 6 gm PO DAILY PRN 06/09/24 06/09/24 History Packet] clindamycin HCL 300 mg PO Q6H 06/09/24 06/09/24 History cloNIDine HCL [Catapres] 0.1 mg PO DAILY 06/09/24 06/09/24 History Allergies Allergy/AdvReac Type Severity Reaction Status Date / Time cephalexin [From Keflex] Allergy Rash/Hives Verified 06/09/24 09:45 ciprofloxacin [From Cipro] Allergy Rash/Hives Verified 06/09/24 09:45 Penicillins Allergy Rash/Hives Verified 06/09/24 09:45 Sulfa (Sulfonamide Allergy "passed Verified 06/09/24 09:45 Antibiotics) out and quit breathing" Surgical - Exam - General well developed, well nourished, no distress - Eyes normal ocular movement, no icteric - ENT no hearing loss, no congestion - Neck no masses, trachea midline - Respiratory normal respiratory effort, clear to auscultation - Abdomen Abdomen: soft, non tender, no guarding, no rigid, no rebound - Integumentary no rash, no abnormal pigmentation - Neurologic no disoriented, no combative - Musculoskeletal Wheel chair bound - Psychiatric oriented to time, oriented to person, oriented to place, speech is normal, memory intact Results - Imaging CT scan - abdomen: report reviewed, image reviewed CT scan - pelvis: report reviewed, image reviewed Assessment and Plan Assessment: Impression recurrent urinary tract infection. Urgency incontinence. Immobility. Recommendations: The patient will undergo anesthetic cystoscopy and treatment as indicated.
[~2024-06-11 07:35] MED LIST changes: -GABAPENTIN 300 MG CAP PO PRN; -LIDOCAINE 1% (10MG/ML) FOR IV START INTRADERMA PRN; +Pre Op ABX Message 1 EACH MISC MISCELLANE ONE; -TRANEXAMIC 1,000 MG/100ML-NACL 1,000 MG in SALINE 1 100ML.BAG IVPB PRN; -fentaNYL (PF) 50 MCG/ML 2 ML AMP IV PRN; -fentaNYL (PF) 50 MCG/ML 2 ML AMP IVP PRN
[2024-06-11] MEDS: IV FLUID CONTINUATION 1,000 ML IV ONE (08:14)
[2024-06-11 08:54] VITALS: RESP 16
[2024-06-11] MEDS: ONDANSETRON 4 MG/2 ML VIAL IVP ONE (09:10)
[2024-06-11] MEDS: DEXAMETHASONE SOD PHOSPHATE 4 MG/ML 1 ML VIAL IV ONE (09:10)
[2024-06-11] MEDS: LACTATED RINGERS 1,000 ML IV SCH (09:11)
[2024-06-11 09:19] LABS: Glucose,Whole Blood 74 mg/dL (70-110)
[2024-06-11] MEDS ORDERED: PROPOFOL 10 MG/ML 20 ML VIAL IV ONE (09:32)
[2024-06-11] MEDS ORDERED: KETAMINE HCL IN 0.9 % NACL 50 MG/5 ML SYRINGE ONE (09:32)
[2024-06-11] MEDS ORDERED: fentaNYL (PF) 50 MCG/ML 2 ML AMP ONE (09:32)
[2024-06-11] MEDS ORDERED: MIDAZOLAM 2 MG/2 ML VIAL ONE (09:32)
--- NOTE | 2024-06-11 10:06 | P.OP ---
Date of Procedure: 06/11/24 Preoperative Diagnosis: Recurrent urinary tract infections Postoperative Diagnosis: Same probably secondary to incomplete bladder emptying Procedure(s) Performed: Cystoscopy with anesthesia Anesthesia: MAC Surgeon: Manolo Valerio Estimated Blood Loss (ml): 0 Pathology: none sent Condition: stable Disposition: PACU Indications for Procedure: The patient is 68. She is custodial dependent. She was referred for recurring urine infections. Upper tract studies were unremarkable. I was unable to achieve cystoscopy in the office due to her immobility wheelchair dependence. She comes for an anesthetic cystoscopy and procedure as indicated. Description of Procedure: Brought to the operating suite. Placed on the operating table supine position. She is given IV sedation. She is placed in lithotomy position with sterile prep and drape. I introduced the 22 [place] sheath and Foroblique lens into the bladder. Urine drained is cloudy. I irrigated the bladder thoroughly. I then look into the bladder completely and identify a heavily trabeculated bladder with cellules. There is no obvious mucosal abnormality. Both ureteral orifices are normal. At the end the procedure the bladder was drained the patient is awakened and returned to cover room in good condition. Bimanual examination performed does not identify any pelvic masses.
[2024-06-11 10:12] VITALS: TEMP 97
[2024-06-11] MEDS: HYDROmorphone 0.5 MG/0.5 ML SYRINGE IVP PRN (10:21)
[2024-06-11 10:57] VITALS: BP 145/68; PULSE 76
[2024-06-11] MEDS ORDERED: SALINE 1 500ML.BAG with HEPARIN SODIUM,PORCINE/NS/PF 1,000 UNIT INTRAARTER PRN (11:06)
[2024-06-11] MEDS: HEPARIN SODIUM,PORCINE 5,000 UNIT/ML 1 ML VIAL IV ONE (11:20)
== END 2024-06-11 11:36 ==
LOC: OR 07:35
PROVIDERS: ATTEND Urology
DX: N39.0 Urinary tract infection, site not specified (principal); I48.91 Unspecified atrial fibrillation; I73.9 Peripheral vascular disease, unspecified; N28.9 Disorder of kidney and ureter, unspecified; I10 Essential (primary) hypertension; I73.00 Raynaud's syndrome without gangrene; K21.9 Gastro-esophageal reflux disease without esophagitis; J44.9 Chronic obstructive pulmonary disease, unspecified; D64.9 Anemia, unspecified; F41.9 Anxiety disorder, unspecified; M32.9 Systemic lupus erythematosus, unspecified; M06.9 Rheumatoid arthritis, unspecified; Z86.73 Personal history of transient ischemic attack (TIA), and cerebral infarction without residual deficits; Z99.3 Dependence on wheelchair; Z88.0 Allergy status to penicillin; Z87.19 Personal history of other diseases of the digestive system; Z90.49 Acquired absence of other specified parts of digestive tract; Z87.891 Personal history of nicotine dependence; Z79.890 Hormone replacement therapy; Z79.51 Long term (current) use of inhaled steroids; Z79.52 Long term (current) use of systemic steroids; Z88.1 Allergy status to other antibiotic agents; Z88.2 Allergy status to sulfonamides; Z79.899 Other long term (current) drug therapy
CPT/HCPCS: 52000; J2250; J1644; J1100; J2405; J3010; J2704; J1171

== ENCOUNTER 2024-07-16 14:46 | Observation (INO) | payer MEDICARE, OTHER ==
--- NOTE | 2024-07-16 15:24 | ED ---
General Adult HPI - General Chief complaint: Recheck/Abnormal Lab/Rx Stated complaint: UTI Time Seen by Provider: 07/16/24 14:55 Source: patient, EMS, RN notes reviewed, old records reviewed Mode of arrival: EMS Limitations: no limitations - History of Present Illness Initial comments: 68-year-old female presenting from the shelter with cough, hypoxia. Patient has had increased lethargy. She has had need for supplemental oxygen over the past 24 hours. Patient reports that she has not been eating or drinking well over the past several days. She reports fever. No chest or abdominal pain. Patient is nonambulatory at baseline. - Related Data Home Medications Medication Instructions Recorded Confirmed Bumetanide [BUMEX] 2 mg PO BID@0700,1100 01/23/23 07/16/24 DULoxetine HCL [Cymbalta] 60 mg PO HS 01/23/23 07/16/24 Fluticasone Nasal [place] [Flonase 1 spr EA NOSTRIL DAILY 01/23/23 07/16/24 Nasal [place]] Levothyroxine Sodium [Synthroid] 50 mcg PO DAILY@0500 01/23/23 07/16/24 Metoprolol Succinate [Metoprolol 12.5 mg PO DAILY 01/23/23 07/16/24 Succinate ER] Mirabegron [Myrbetriq] 50 mg PO DAILY 01/23/23 07/16/24 Montelukast [Singulair] 10 mg PO HS 01/23/23 07/16/24 Potassium Chloride ER [K-Dur 20] 20 meq PO DAILY 01/23/23 07/16/24 Pregabalin [Lyrica] 50 mg PO BID 01/23/23 07/16/24 traZODone HCL 300 mg PO HS 01/23/23 07/16/24 traZODone HCL [Desyrel] 50 mg PO HS 01/23/23 07/16/24 ALPRAZolam [Xanax] 0.5 mg PO TID 07/04/23 07/16/24 Albuterol Inhaler [Ventolin Hfa 2 puff INHALATION RT-Q4H PRN 07/04/23 07/16/24 Inhaler] Butalb/APAP/Caff 50-325-40Mg 1 tab PO Q4H PRN 07/04/23 07/16/24 [Fioricet 50-325-40] Fluticasone Propion/Salmeterol 1 puff INHALATION RT-BID 07/04/23 07/16/24 [Advair 250-50 Diskus] Cetirizine HCl [Zyrtec] 10 mg PO DAILY 03/27/24 07/16/24 Cyanocobalamin (Vitamin B-12) 1,000 mcg PO HS 03/27/24 07/16/24 [Vitamin B-12] Dicyclomine HCl 20 mg PO TID@0700,1300,1900 03/27/24 07/16/24 Docusate Sodium [Dok] 100 mg PO BID 03/27/24 07/16/24 Ferrous Sulfate [Iron (65 MG 325 mg PO HS 03/27/24 07/16/24 Elemental)] Lanolin/Mineral Oil [Eucerin 1 applic TOPICAL HS 03/27/24 07/16/24 Original Lotion] Naloxone HCl 0.4 mg IM DIRECTED PRN 03/27/24 07/16/24 Naloxone HCl 4 mg NASAL DIRECTED PRN 03/27/24 07/16/24 Omeprazole [PriLOSEC] 20 mg PO BID 03/27/24 07/16/24 fluocinolone acetonide oiL 2 drops BOTH EARS Q2D@2100 03/27/24 07/16/24 [fluocinolone acetonide oiL 0.01% (Otic)] polyethylene glycoL 3350 [Miralax] 17 gm PO BID 03/27/24 07/16/24 Acetaminophen [Tylenol 8 Hour] 650 mg PO Q6H PRN 06/09/24 07/16/24 Ascorbic Acid [Vitamin C] 500 mg PO DAILY@0700 06/09/24 07/16/24 Magnesium Hydroxide [Milk of 2,400 mg PO DAILY PRN 06/09/24 07/16/24 Magnesia] cloNIDine HCL [Catapres] 0.1 mg PO Q24H PRN 06/09/24 07/16/24 Apixaban [Eliquis] 5 mg PO BID 06/11/24 07/16/24 Clopidogrel [Plavix] 75 mg PO HS 06/11/24 07/16/24 Calcium Carbonate [Tums] 500 mg PO TID@0600,1100,1600 06/30/24 07/16/24 Ergocalciferol [Vitamin D2 (1250 1,250 mcg PO TU@0700 06/30/24 07/16/24 Mcg = 42290 Iu)] Lactobacillus Acidophilus 1 cap PO BID 06/30/24 07/16/24 [Acidophilus] Loperamide HCl [Imodium A-D] 2 - 4 mg PO QID PRN 06/30/24 07/16/24 Metamucil Smooth Texture 58.6% 1 packet PO Q8H PRN 06/30/24 07/16/24 Oral Powder Ocular Vitamins 1 tab PO BID 06/30/24 07/16/24 Sennosides [Senokot] 17.2 tab PO BID 06/30/24 07/16/24 Tramadol 100mg 100 mg PO Q6H 06/30/24 07/16/24 predniSONE 5 mg PO DAILY 06/30/24 07/16/24 tiZANidine [Zanaflex] 2 mg PO Q8HR PRN 06/30/24 07/16/24 Etanercept [Enbrel] 50 mg SQ WE 07/16/24 07/16/24 Ipratropium-Albuterol Nebulize 3 ml INHALATION RT-Q4H 07/16/24 07/16/24 [Duoneb 0.5 mg-3 mg/3 ml Soln] guaiFENesin [guaiFENesin ER] 600 mg PO Q12H 07/16/24 07/16/24 Allergies Allergy/AdvReac Type Severity Reaction Status Date / Time cephalexin [From Keflex] Allergy Rash/Hives Verified 07/16/24 15:50 ciprofloxacin [From Cipro] Allergy Rash/Hives Verified 07/16/24 15:50 nitrofurantoin Allergy Unknown Verified 07/16/24 15:50 [From Macrobid] Penicillins Allergy Rash/Hives Verified 07/16/24 15:50 Sulfa (Sulfonamide Allergy "passed Verified 07/16/24 15:50 Antibiotics) out and quit breathing" Review of Systems ROS Statement: Those systems with pertinent positive or pertinent negative responses have been documented in the HPI. ROS Other: All systems not noted in ROS Statement are negative. Past Medical History Past Medical History: Atrial Fibrillation, COPD, CVA/TIA, GERD/Reflux, Hypertension, Renal Disease, Rheumatoid Arthritis (RA), Skin Disorder, Vascular Disorder Additional Past Medical History / Comment(s): Pt states, "I have a monitor under my skin in the middle of my chest that monitors my heart through my phone."Falls- Pt states, "I passed out in August of 2022." "I wasn't found for 3 days." "I went to [facility] and the ER said possible TIA." "My speech was slurred at that episode." "It's good now." "I didn't have any further testing.", stage II kidney disease, Raynaud's, Lupus and connective tissue disease, rotator cuff issues to rt shoulder, 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 History of Any Multi-Drug Resistant Organisms: None Reported Past Surgical History: Cholecystectomy, Joint Replacement, Orthopedic Surgery Additional Past Surgical History / Comment(s): Bilat shoulder, right hip, right knee x 2, bi lat mediport, cataracts bi lat. Past Anesthesia/Blood Transfusion Reactions: No Reported Reaction Additional Past Anesthesia/Blood Transfusion Reaction / Comment(s): Hx of blood transfusion-no reaction. Date of Last Stent Placement:: 08/09/23 Past Psychological History: Anxiety Smoking Status: Former smoker Past Alcohol Use History: None Reported Past Drug Use History: None Reported - Past Family History Father Family Medical History: No Reported History General Exam Limitations: no limitations General appearance: in no apparent distress, lethargic Head exam: Present: atraumatic, normocephalic Eye exam: Present: normal appearance, PERRL ENT exam: Present: mucous membranes dry Respiratory exam: Present: wheezes, rhonchi, decreased breath sounds. Absent: r espiratory distress Cardiovascular Exam: Present: regular rate, normal rhythm GI/Abdominal exam: Present: soft. Absent: distended, tenderness Extremities exam: Absent: pedal edema, calf tenderness Neurological exam: Present: alert. Absent: motor sensory deficit Skin exam: Present: warm, dry, intact Course Vital Signs 07/16/24 07/16/24 14:49 15:05 Temperature 99.9 F H Pulse Rate 104 H Respiratory 22 Rate Blood Pressure 130/79 O2 Sat by Pulse 86 L 95 Oximetry Medical Decision Making - Medical Decision Making Was pt. sent in by a medical professional or institution (, PA, SUPERVISOR [employer], urgent care, hospital, or shelter...) When possible be specific @Sent in from shelter with hypoxia, dyspnea, low-grade fever. Did you speak to anyone other than the patient for history (EMS, parent, family, police, friend...)? What history was obtained from this source @ -No Did you review nursing and triage notes (agree or disagree)? Why? @ -I reviewed and agree with nursing and triage notes Were old charts reviewed (outside hosp., previous admission, EMS record, old EKG, old radiological studies, urgent care reports/EKG's, shelter records)? Report findings @ -No old charts were reviewed Differential Dyspnea: Coronary syndrome, arrhythmia, tamponade, asthma, COPD, pulmonary embolism, pneumonia, pneumothorax, pulmonary effusion, anaphylaxis, diabetic ketoacidosis, flailed chest, pulmonary contusion, diaphragmatic rupture, anemia, neuromuscular, this is not meant to be an all-inclusive list. EKG interpreted by me (3pts min.). @ -[Sinus rhythm right bundle branch block rate of 88, LA interval 143, QRS duration 130, QTc 398 X-rays interpreted by me (1pt min.). @Chest x-ray is negative for consolidated pneumonia CT interpreted by me (1pt min.). @ -None done U/S interpreted by me (1pt. min.). @ -None done What testing was considered but not performed or refused? (CT, X-rays, U/S, labs)? Why? @ -None What meds were considered but not given or refused? Why? @ -None Did you discuss the management of the patient with other professionals (professionals i.e. , PA, SUPERVISOR [employer]Y ASSEMBLY, lab, RT, psych nurse, school social worker, environmental lawyer, teacher, radio officer, case checker)? Give summary @Alicia Was smoking cessation discussed for >3mins.? @ -No Was critical care preformed (if so, how long)? @ -No Were there social determinants of health that impacted care today? How? (Homelessness, low income, unemployed, alcoholism, drug addiction, transportation, low edu. Level, literacy, decrease access to med. care, mcc, rehab)? @ -No Was there de-escalation of care discussed even if they declined (Discuss DNR or withdrawal of care, Hospice)? DNR status @ -No What co-morbidities impacted this encounter? (DM, HTN, Smoking, COPD, CAD, Can cer, CVA, ARF, Chemo, Hep., AIDS, mental health diagnosis, sleep apnea, morbid obesity)? @ -[COPD Was patient admitted / discharged? Hospital course, mention meds given and route, prescriptions, significant lab abnormalities, going to OR and other pertinent info. @ -5-year-old female sent in from shelter for evaluation of dyspnea, hypoxia history of COPD. Chest x-ray is clear without consolidated pneumonia. Patient has negative viral panel. She is in sinus rhythm without ST segment lan vation. She does have some degree of CO2 retention likely secondary to COPD. She will be placed in observation for treatment of COPD exacerbation with orders for antibiotics, steroids, albuterol and Atrovent. Case discussed with [facility] Undiagnosed new problem with uncertain prognosis? @ -No Drug Therapy requiring intensive monitoring for toxicity (Heparin, Nitro, Insulin, Cardizem)? @ -No Were any procedures done? @ -No Diagnosis/symptom? @ -COPD exacerbation Acute, or Chronic, or Acute on Chronic? @Acute on chronic Uncomplicated (without systemic symptoms) or Complicated (systemic symptoms)? @ -Default Side effects of treatment? @ -No Exacerbation, Progression, or Severe Exacerbation? @ -No Poses a threat to life or bodily function? How? (Chest pain, USA, IA, pneumonia, PE, COPD, DKA, ARF, appy, cholecystitis, CVA, Diverticulitis, Homicidal, Suicidal, threat to staff... and all critical care pts) @Yes, COPD, respiratory failure - Lab Data Result diagrams: 07/16/24 15:31 07/16/24 15:31 Lab Results 07/16/24 07/16/24 07/16/24 Range/Units 15:31 15:31 15:31 WBC 9.3 (3.8-10.6) k/uL RBC 4.09 (3.80-5.40) m/uL Hgb 11.0 L (11.4-16.0) gm/dL Hct 34.7 (34.0-46.0) % MCV 84.7 (80.0-100.0) fL MCH 26.9 (25.0-35.0) pg MCHC 31.7 (31.0-37.0) g/dL RDW 16.3 H (11.5-15.5) % Plt Count 267 (150-450) k/uL MPV 6.9 Neutrophils % 90 % Lymphocytes % 4 % Monocytes % 3 % Eosinophils % 2 % Basophils % 0 % Neutrophils # 8.4 H (1.3-7.7) k/uL Lymphocytes # 0.3 L (1.0-4.8) k/uL Monocytes # 0.3 (0-1.0) k/uL Eosinophils # 0.2 (0-0.7) k/uL Basophils # 0.0 (0-0.2) k/uL Hypochromasia Slight Anisocytosis Slight PT 11.1 (10.0-12.5) sec INR 1.0 (<1.2) APTT 26.5 (22.0-30.0) sec VBG pH 7.39 (7.31-7.41) VBG pCO2 57 H (37-51) mmHg VBG HCO3 35 H (24-28) mmol/L Sodium (137-145) mmol/L Potassium (3.5-5.1) mmol/L Chloride (98-107) mmol/L Carbon Dioxide (22-30) mmol/L Anion Gap mmol/L BUN (7-17) mg/dL Creatinine (0.52-1.04) mg/dL Est GFR (CKD-EPI)AfAm (>60 ml/min/1.73 sqM) Est GFR (CKD-EPI)NonAf (>60 ml/min/1.73 sqM) Glucose (74-99) mg/dL Plasma Lactic Acid Giancarlo (0.7-2.0) mmol/L Calcium (8.4-10.2) mg/dL Magnesium (1.6-2.3) mg/dL Total Bilirubin (0.2-1.3) mg/dL AST (14-36) U/L ALT (4-34) U/L Alkaline Phosphatase (38-126) U/L Troponin I (0.000-0.034) ng/mL NT-Pro-B Natriuret Pep pg/mL Total Protein (6.3-8.2) g/dL Albumin (3.5-5.0) g/dL Urine Color Urine Appearance (Clear) Urine pH (5.0-8.0) Ur Specific [place] (1.001-1.035) Urine Protein (Negative) Urine Glucose (UA) (Negative) Urine Ketones (Negative) Urine Blood (Negative) Urine Nitrite (Negative) Urine Bilirubin (Negative) Urine Urobilinogen (<2.0) mg/dL Ur Leukocyte Esterase (Negative) Influenza Type A (PCR) (Not Detectd) Influenza Type B (PCR) (Not Detectd) RSV (PCR) (Not Detectd) SARS-CoV-2 (PCR) (Not Detectd) 07/16/24 07/16/24 07/16/24 Range/Units 15:31 15:31 15:31 WBC (3.8-10.6) k/uL RBC (3.80-5.40) m/uL Hgb (11.4-16.0) gm/dL Hct (34.0-46.0) % MCV (80.0-100.0) fL MCH (25.0-35.0) pg MCHC (31.0-37.0) g/dL RDW (11.5-15.5) % Plt Count (150-450) k/uL MPV Neutrophils % % Lymphocytes % % Monocytes % % Eosinophils % % Basophils % % Neutrophils # (1.3-7.7) k/uL Lymphocytes # (1.0-4.8) k/uL Monocytes # (0-1.0) k/uL Eosinophils # (0-0.7) k/uL Basophils # (0-0.2) k/uL Hypochromasia Anisocytosis PT (10.0-12.5) sec INR (<1.2) APTT (22.0-30.0) sec VBG pH (7.31-7.41) VBG pCO2 (37-51) mmHg VBG HCO3 (24-28) mmol/L Sodium 131 L (137-145) mmol/L Potassium 5.2 H (3.5-5.1) mmol/L Chloride 92 L (98-107) mmol/L Carbon Dioxide 33 H (22-30) mmol/L Anion Gap 6 mmol/L BUN 20 H (7-17) mg/dL Creatinine 0.94 (0.52-1.04) mg/dL Est GFR (CKD-EPI)AfAm 71 (>60 ml/min/1.73 sqM) Est GFR (CKD-EPI)NonAf 62 (>60 ml/min/1.73 sqM) Glucose 100 H (74-99) mg/dL Plasma Lactic Acid Giancarlo 0.7 (0.7-2.0) mmol/L Calcium 8.3 L (8.4-10.2) mg/dL Magnesium 2.6 H (1.6-2.3) mg/dL Total Bilirubin 1.0 (0.2-1.3) mg/dL AST 87 H (14-36) U/L ALT 84 H (4-34) U/L Alkaline Phosphatase 154 H (38-126) U/L Troponin I 0.019 (0.000-0.034) ng/mL NT-Pro-B Natriuret Pep 706 pg/mL Total Protein 6.5 (6.3-8.2) g/dL Albumin 3.5 (3.5-5.0) g/dL Urine Color Urine Appearance (Clear) Urine pH (5.0-8.0) Ur Specific [place] (1.001-1.035) Urine Protein (Negative) Urine Glucose (UA) (Negative) Urine Ketones (Negative) Urine Blood (Negative) Urine Nitrite (Negative) Urine Bilirubin (Negative) Urine Urobilinogen (<2.0) mg/dL Ur Leukocyte Esterase (Negative) Influenza Type A (PCR) (Not Detectd) Influenza Type B (PCR) (Not Detectd) RSV (PCR) (Not Detectd) SARS-CoV-2 (PCR) (Not Detectd) 07/16/24 07/16/24 Range/Units 15:35 16:31 WBC (3.8-10.6) k/uL RBC (3.80-5.40) m/uL Hgb (11.4-16.0) gm/dL Hct (34.0-46.0) % MCV (80.0-100.0) fL MCH (25.0-35.0) pg MCHC (31.0-37.0) g/dL RDW (11.5-15.5) % Plt Count (150-450) k/uL MPV Neutrophils % % Lymphocytes % % Monocytes % % Eosinophils % % Basophils % % Neutrophils # (1.3-7.7) k/uL Lymphocytes # (1.0-4.8) k/uL Monocytes # (0-1.0) k/uL Eosinophils # (0-0.7) k/uL Basophils # (0-0.2) k/uL Hypochromasia Anisocytosis PT (10.0-12.5) sec INR (<1.2) APTT (22.0-30.0) sec VBG pH (7.31-7.41) VBG pCO2 (37-51) mmHg VBG HCO3 (24-28) mmol/L Sodium (137-145) mmol/L Potassium (3.5-5.1) mmol/L Chloride (98-107) mmol/L Carbon Dioxide (22-30) mmol/L Anion Gap mmol/L BUN (7-17) mg/dL Creatinine (0.52-1.04) mg/dL Est GFR (CKD-EPI)AfAm (>60 ml/min/1.73 sqM) Est GFR (CKD-EPI)NonAf (>60 ml/min/1.73 sqM) Glucose (74-99) mg/dL Plasma Lactic Acid Giancarlo (0.7-2.0) mmol/L Calcium (8.4-10.2) mg/dL Magnesium (1.6-2.3) mg/dL Total Bilirubin (0.2-1.3) mg/dL AST (14-36) U/L ALT (4-34) U/L Alkaline Phosphatase (38-126) U/L Troponin I (0.000-0.034) ng/mL NT-Pro-B Natriuret Pep pg/mL Total Protein (6.3-8.2) g/dL Albumin (3.5-5.0) g/dL Urine Color Light Yellow Urine Appearance Clear (Clear) Urine pH 7.5 (5.0-8.0) Ur Specific [place] 1.012 (1.001-1.035) Urine Protein Trace H (Negative) Urine Glucose (UA) Negative (Negative) Urine Ketones Negative (Negative) Urine Blood Negative (Negative) Urine Nitrite Negative (Negative) Urine Bilirubin Negative (Negative) Urine Urobilinogen <2.0 (<2.0) mg/dL Ur Leukocyte Esterase Negative (Negative) Influenza Type A (PCR) Not Detected (Not Detectd) Influenza Type B (PCR) Not Detected (Not Detectd) RSV (PCR) Not Detected (Not Detectd) SARS-CoV-2 (PCR) Not Detected (Not Detectd) Disposition Clinical Impression: COPD exacerbation Disposition: ADMITTED IP TO THIS HOSP Condition: Stable Is patient prescribed a controlled substance at d/c from ED?: No Referrals: Loren Zazueta DO [Primary Care Provider] - 1-2 days Time of Disposition: 17:30
[2024-07-16 15:38] LABS: VBG PH 7.39 (7.31-7.41)
[2024-07-16 15:42] LABS: Anisocytosis Slight; Basophils % (A) 0 %; Eosinophils # (A) 0.2 k/uL (0-0.7); Eosinophils % (A) 2 %; HCT 34.7 % (34.0-46.0); Hypochromasia Slight; Lymphocytes # (A) 0.3 k/uL (1.0-4.8); Lymphocytes % (A) 4 %; MCH 26.9 pg (25.0-35.0); MCHC 31.7 g/dL (31.0-37.0); MCV 84.7 fL (80.0-100.0); Mean Platelet Volume 6.9; Monocytes # (A) 0.3 k/uL (0-1.0); Monocytes % (A) 3 %; Neutrophils # (A) 8.4 k/uL (1.3-7.7); Neutrophils % (A) 90 %; Platelet Count 267 k/uL (150-450); RBC 4.09 m/uL (3.80-5.40); RDW 16.3 % (11.5-15.5); WBC 9.3 k/uL (3.8-10.6)
[2024-07-16 15:51] LABS: ALT 84 U/L (4-34); African American GFR (CKD) 71 (>60 ml/min/1.73 sqM); Anion Gap 6 mmol/L; Blood Urea Nitrogen 20 mg/dL (7-17); Calcium 8.3 mg/dL (8.4-10.2); Carbon Dioxide 33 mmol/L (22-30); Chloride 92 mmol/L (98-107); Glucose 100 mg/dL (74-99); Non-African American GFR(CKD) 62 (>60 ml/min/1.73 sqM); Partial Thromboplastin Time 26.5 sec (22.0-30.0); Prothrombin Time 11.1 sec (10.0-12.5); Sodium 131 mmol/L (137-145)
[2024-07-16 15:59] LABS: NT-Pro-B-Type Natriuretic Pept 706 pg/mL
--- NOTE | 2024-07-16 15:59 | XR ---
Chest, 2 view. CLINICAL INDICATION: Female, 68 years old with history of difficulty breathing COMPARISON: None TECHNIQUE: PA and lateral views the chest are obtained. FINDINGS: There is a central venous catheter tip in the SVC/RA junction. There is a loop recorder. The heart do es not appear enlarged and the pulmonary vasculature is not congested. There are tiny bilateral pleur al effusions. There is no pneumothorax. There is a reverse left shoulder. FINDINGS: Exam limited by the patient's body habitus. There are tiny pleural effusions with no other significan t abnormality seen. [facility], , 07/16/2024 3:57 PM
[2024-07-16 16:21] LABS: AST 87 U/L (14-36); Albumin 3.5 g/dL (3.5-5.0); Alkaline Phosphatase 154 U/L (38-126); Magnesium 2.6 mg/dL (1.6-2.3); Potassium 5.2 mmol/L (3.5-5.1); Total Protein 6.5 g/dL (6.3-8.2)
[2024-07-16 16:23] LABS: Influenza A Not Detected (Not Detectd); Influenza B Not Detected (Not Detectd); RSV Not Detected (Not Detectd)
[2024-07-16 16:58] LABS: Appearance,Urine Clear (Clear); Bilirubin,Urine Negative (Negative); Blood,Urine Negative (Negative); Color,Urine Light Yellow; Glucose,Urine (UA) Negative (Negative); Ketones,Urine Negative (Negative); Leukocyte Esterase,Urine Negative (Negative); Nitrite,Urine Negative (Negative); PH, Urine 7.5 (5.0-8.0); Protein,Urine Trace (Negative); Specific Gravity,Urine 1.012 (1.001-1.035); Urobilinogen,Urine <2.0 mg/dL (<2.0)
[2024-07-16] MEDS ORDERED: ACETAMINOPHEN TAB 325 MG TAB PO PRN ×2 (17:26→21:19)
[2024-07-16] MEDS ORDERED: NALOXONE 0.4 MG/ML 1 ML VIAL IVP PRN (17:26)
[2024-07-16] MEDS ORDERED: IPRATROPIUM-ALBUTEROL 3 ML NEB INHALATION PRN (17:26)
[2024-07-16] MEDS: methylPREDNISolone SOD SUCCI 125 MG/2 ML VIAL IV STA (18:04)
[2024-07-16] MEDS: AZITHROMYCIN 500 MG in SODIUM CHLORIDE 0.9% 250 ML IVPB STA (18:04)
[2024-07-16] MEDS: IPRATROPIUM-ALBUTEROL 3 ML NEB INHALATION SCH (20:27)
[2024-07-16] MEDS ORDERED: SENNOSIDES 8.6 MG TAB PO PRN (21:19)
[2024-07-16] MEDS ORDERED: LOPERAMIDE 2 MG CAP PO PRN (21:19)
[2024-07-16] MEDS ORDERED: tiZANidine 4 MG TAB PO PRN (21:19)
[2024-07-16] MEDS: guaiFENesin 600 MG TABLET.ER PO SCH (22:07)
[2024-07-16] MEDS: MONTELUKAST 10 MG TAB PO SCH (22:07)
[2024-07-16] MEDS: PREGABALIN 50 MG CAP PO SCH (22:07)
[2024-07-16] MEDS: traZODone HCL 100 MG TAB PO SCH (22:07)
[2024-07-16] MEDS: DULoxetine HCL 60 MG CAPSULE.DR PO SCH (22:08)
[2024-07-16] MEDS: ALPRAZolam 0.5 MG TAB PO PRN (22:08)
[2024-07-16] MEDS: CLOPIDOGREL 75 MG TAB PO SCH (22:08)
[2024-07-16] MEDS: traMADol 50 MG TAB PO PRN (22:08)
[2024-07-16] MEDS: SODIUM ZIRCONIUM CYCLOSILICATE 10 GM PACKET PO ONE (22:09)
[2024-07-16] MEDS: APIXABAN 5 MG TAB PO SCH (22:09)
[2024-07-16] MEDS: traZODone HCL 50 MG TAB PO SCH (22:15)
[2024-07-16 22:56] LABS: Glucose,Whole Blood 114 mg/dL (70-110)
[2024-07-17] MEDS: methylPREDNISolone SOD SUCCI 125 MG/2 ML VIAL IV SCH (00:22)
--- NOTE | 2024-07-17 01:55 | P.CNPUL ---
History of Present Illness Consult date: 07/17/24 Requesting physician: Alicia Galarza Reason for consult: COPD Chief complaint: Sent in from [facility] History of present illness: Patient is a 68-year-old female, sent in from her ECF, [facility], with symptoms of dyspnea, cough, lethargy, and reduced oral intake. She has been requiring supplemental oxygen at outside facility. She is a poor historian, and often contradicts herself. Documented past medical history including atrial fibrillation, hypertension, rheumatoid arthritis, lupus, former tobacco dependence, and COPD. Also, she has had multiple orthopedic surgeries, nonambulatory, and unable to take care of herself independently. Workup in the emergency department including a chest x-ray which shows a stable cardiac silhouette, suspect tiny bilateral pleural effusions, right chest Mediport and loop recorder. No obvious focal infiltrates or evidence of pneumonia, pneumot horaces, nodules or masses. Viral screen negative for influenza, RSV, COVID. She is known to have frequent urinary tract infections, recently underwent cystoscopy in May,. Urinalysis unremarkable for infection. CBC: WBC count 9.3, hemoglobin 11, platelets 267. CMP: Sodium 131, potassium 5.2, chloride 92, serum bicarb 33, BUN 20, creatinine 0.94, glucose 100. Lactic 0.7. LFTs mildly elevated. Troponin 0.019, NT proBNP 706. EKG: Normal sinus, rate 88 bpm, RBB pattern, no obvious acute ischemic changes. VBG with a pH of 7.39, pCO2 57. A pulmonary consult was placed for COPD. Patient currently being evaluated in observation unit. She is resting comfortably on 4 L/min nasal cannula. Alert and oriented x 3. On interview, states she had a cold approximately 1 month ago. She has been short of breath since then. Occasional nonproductive cough. Sleeping a lot. Reduced appetite. She is unfamiliar with her inhalers. No longer smokes cigarettes. It appears she has a new patient visit in the pulmonary office 07/31/2024. Denies any chest pain, heart palpitations, lightheadedness/syncope, lower extremity edema. A secondary concern of the patient, is constipation. Reportedly, has not had a bowel movement in 5 days. Abdomen is soft and does not appear nonacute. States this is a common problem. Receiving Senokot and as needed MiraLAX. Most recent vital signs: Temperature 98.9 F, heart rate 74 bpm, blood pressure 132/77 mmHg, nontachypneic, SpO2 recorded at 96% on 4 L/min nasal cannula. Review of Systems Constitutional: Reports fatigue, Reports sweats, Denies chills, Denies fever, Denies poor appetite, Denies weight gain, Denies weight loss Ears, nose, mouth and throat: Denies headache, Denies nasal congestion, Denies nasal discharge, Denies post-nasal drip, Denies sinus pain, Denies sinus pressure, Denies sore throat Cardiovascular: Reports as per HPI Respiratory: Reports as per HPI Gastrointestinal: Reports constipation, Reports loss of appetite, Denies abdominal pain, Denies diarrhea, Denies nausea, Denies vomiting Genitourinary: Reports urgency, Denies dysuria, Denies flank pain, Denies hematuria, Denies urinary frequency Musculoskeletal: Reports gait dysfunction Integumentary: Denies rash Neurological: Denies seizures, Denies syncope Psychiatric: Denies anxiety, Denies depression Past Medical History Past Medical History: Atrial Fibrillation, COPD, CVA/TIA, GERD/Reflux, Hypertension, Renal Disease, Rheumatoid Arthritis (RA), Skin Disorder, Vascular Disorder Additional Past Medical History / Comment(s): Pt states, "I have a monitor under my skin in the middle of my chest that monitors my heart through my phone."Falls- Pt states, "I passed out in August of 2022." "I wasn't found for 3 days." "I went to [facility] and the ER said possible TIA." "My speech was slurred at that episode." "It's good now." "I didn't have any further testing.", stage II kidney disease, Raynaud's, Lupus and connective tissue disease, rotator cuff issues to rt shoulder, 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 History of Any Multi-Drug Resistant Organisms: None Reported Past Surgical History: Cholecystectomy, Joint Replacement, Orthopedic Surgery Additional Past Surgical History / Comment(s): Bilat shoulder, right hip, right knee x 2, bi lat mediport, cataracts bi lat. Past Anesthesia/Blood Transfusion Reactions: No Reported Reaction Additional Past Anesthesia/Blood Transfusion Reaction / Comment(s): Hx of blood transfusion-no reaction. Date of Last Stent Placement:: 08/09/23 Past Psychological History: Anxiety Smoking Status: Former smoker Past Alcohol Use History: None Reported Additional Past Alcohol Use History / Comment(s): vapes menthol Past Drug Use History: None Reported - Past Family History Father Family Medical History: No Reported History Medications and Allergies Home Medications Medication Instructions Recorded Confirmed Type Bumetanide [BUMEX] 2 mg PO BID@0700,1100 01/23/23 07/16/24 History DULoxetine HCL [Cymbalta] 60 mg PO HS 01/23/23 07/16/24 History Fluticasone Nasal [place] [Flonase 1 spr EA NOSTRIL DAILY 01/23/23 07/16/24 History Nasal [place]] Levothyroxine Sodium [Synthroid] 50 mcg PO DAILY@0500 01/23/23 07/16/24 History Metoprolol Succinate [Metoprolol 12.5 mg PO DAILY 01/23/23 07/16/24 History Succinate ER] Mirabegron [Myrbetriq] 50 mg PO DAILY 01/23/23 07/16/24 History Montelukast [Singulair] 10 mg PO HS 01/23/23 07/16/24 History Potassium Chloride ER [K-Dur 20] 20 meq PO DAILY 01/23/23 07/16/24 History Pregabalin [Lyrica] 50 mg PO BID 01/23/23 07/16/24 History traZODone HCL 300 mg PO HS 01/23/23 07/16/24 History traZODone HCL [Desyrel] 50 mg PO HS 01/23/23 07/16/24 History ALPRAZolam [Xanax] 0.5 mg PO TID 07/04/23 07/16/24 History Albuterol Inhaler [Ventolin Hfa 2 puff INHALATION RT-Q4H PRN 07/04/23 07/16/24 History Inhaler] Butalb/APAP/Caff 50-325-40Mg 1 tab PO Q4H PRN 07/04/23 07/16/24 History [Fioricet 50-325-40] Fluticasone Propion/Salmeterol 1 puff INHALATION RT-BID 07/04/23 07/16/24 History [Advair 250-50 Diskus] Cetirizine HCl [Zyrtec] 10 mg PO DAILY 03/27/24 07/16/24 History Cyanocobalamin (Vitamin B-12) 1,000 mcg PO HS 03/27/24 07/16/24 History [Vitamin B-12] Dicyclomine HCl 20 mg PO TID@0700,1300,1900 03/27/24 07/16/24 History Docusate Sodium [Dok] 100 mg PO BID 03/27/24 07/16/24 History Ferrous Sulfate [Iron (65 MG 325 mg PO HS 03/27/24 07/16/24 History Elemental)] Lanolin/Mineral Oil [Eucerin 1 applic TOPICAL HS 03/27/24 07/16/24 History Original Lotion] Naloxone HCl 0.4 mg IM DIRECTED PRN 03/27/24 07/16/24 History Naloxone HCl 4 mg NASAL DIRECTED PRN 03/27/24 07/16/24 History Omeprazole [PriLOSEC] 20 mg PO BID 03/27/24 07/16/24 History fluocinolone acetonide oiL 2 drops BOTH EARS Q2D@2100 03/27/24 07/16/24 History [fluocinolone acetonide oiL 0.01% (Otic)] polyethylene glycoL 3350 [Miralax] 17 gm PO BID 03/27/24 07/16/24 History Acetaminophen [Tylenol 8 Hour] 650 mg PO Q6H PRN 06/09/24 07/16/24 History Ascorbic Acid [Vitamin C] 500 mg PO DAILY@0700 06/09/24 07/16/24 History Magnesium Hydroxide [Milk of 2,400 mg PO DAILY PRN 06/09/24 07/16/24 History Magnesia] cloNIDine HCL [Catapres] 0.1 mg PO Q24H PRN 06/09/24 07/16/24 History Apixaban [Eliquis] 5 mg PO BID 06/11/24 07/16/24 History Clopidogrel [Plavix] 75 mg PO HS 06/11/24 07/16/24 History Calcium Carbonate [Tums] 500 mg PO TID@0600,1100,1600 06/30/24 07/16/24 History Ergocalciferol [Vitamin D2 (1250 1,250 mcg PO TU@0700 06/30/24 07/16/24 History Mcg = 13870 Iu)] Lactobacillus Acidophilus 1 cap PO BID 06/30/24 07/16/24 History [Acidophilus] Loperamide HCl [Imodium A-D] 2 - 4 mg PO QID PRN 06/30/24 07/16/24 History Metamucil Smooth Texture 58.6% 1 packet PO Q8H PRN 06/30/24 07/16/24 History Oral Powder Ocular Vitamins 1 tab PO BID 06/30/24 07/16/24 History Sennosides [Senokot] 17.2 tab PO BID 06/30/24 07/16/24 History Tramadol 100mg 100 mg PO Q6H 06/30/24 07/16/24 History predniSONE 5 mg PO DAILY 06/30/24 07/16/24 History tiZANidine [Zanaflex] 2 mg PO Q8HR PRN 06/30/24 07/16/24 History Etanercept [Enbrel] 50 mg SQ WE 07/16/24 07/16/24 History Ipratropium-Albuterol Nebulize 3 ml INHALATION RT-Q4H 07/16/24 07/16/24 History [Duoneb 0.5 mg-3 mg/3 ml Soln] guaiFENesin [guaiFENesin ER] 600 mg PO Q12H 07/16/24 07/16/24 History Allergies Allergy/AdvReac Type Severity Reaction Status Date / Time cephalexin [From Keflex] Allergy Rash/Hives Verified 07/16/24 15:50 ciprofloxacin [From Cipro] Allergy Rash/Hives Verified 07/16/24 15:50 nitrofurantoin Allergy Unknown Verified 07/16/24 15:50 [From Macrobid] Penicillins Allergy Rash/Hives Verified 07/16/24 15:50 Sulfa (Sulfonamide Allergy "passed Verified 07/16/24 15:50 Antibiotics) out and quit breathing" Physical Exam Vitals: Vital Signs Temp Pulse Pulse Resp BP BP Pulse Ox 07/16/24 20:34 75 18 07/16/24 20:27 73 18 07/16/24 20:26 98.9 F 74 18 132/77 96 07/16/24 19:58 80 18 128/66 95 07/16/24 18:02 79 18 130/60 96 07/16/24 15:05 95 02/19/25 14:49 99.9 F H 104 H 22 130/79 86 L Intake and Output 07/16/24 07/16/24 07/17/24 14:59 22:59 06:59 Other: Voiding Method External Catheter Weight 86.183 kg 86.183 kg GENERAL EXAM: Alert, 68-year-old white female, weak and unable to sit up in bed without assistance, comfortable in no apparent distress. HEAD: Normocephalic and atraumatic EYES: Normal reaction of pupils, equal size. NOSE: Clear with pink turbinates. THROAT: No erythema or exudates. NECK: No masses, no JVD. CHEST: No chest wall deformity. Right chest Mediport LUNGS: Equal air entry with diminished lung sounds bilaterally and throughout. No crackles, wheezes, rhonchi. On 4 L/min nasal cannula. No conversational dyspnea or accessory muscle use while at rest CVS: S1 and S2 normal with no audible murmur, regular rhythm. No extra heart juan nds ABDOMEN: No hepatosplenomegaly, active bowel sounds, no guarding or rigidity. SPINE: No scoliosis or deformity SKIN: No rashes CENTRAL NERVOUS SYSTEM: No focal deficits, tone is normal in all 4 extremities. EXTREMITIES: There is no peripheral edema, clubbing, or cyanosis. Peripheral pulses are intact. Results - Laboratory Findings CBC and BMP: 07/16/24 15:31 07/17/24 02:46 PT/INR, D-dimer PT 11.1 sec (10.0-12.5) 07/16/24 15:31 INR 1.0 (<1.2) 07/16/24 15:31 Abnormal lab findings: Abnormal Labs 07/16/24 07/16/24 07/16/24 15:31 15:31 15:31 Hgb 11.0 L RDW 16.3 H Neutrophils # 8.4 H Lymphocytes # 0.3 L VBG pCO2 57 H VBG HCO3 35 H Sodium 131 L Potassium 5.2 H Chloride 92 L Carbon Dioxide 33 H BUN 20 H Glucose 100 H POC Glucose (mg/dL) Calcium 8.3 L Magnesium 2.6 H AST 87 H ALT 84 H Alkaline Phosphatase 154 H Urine Protein 07/16/24 07/16/24 16:31 22:55 Hgb RDW Neutrophils # Lymphocytes # VBG pCO2 VBG HCO3 Sodium Potassium Chloride Carbon Dioxide BUN Glucose POC Glucose (mg/dL) 114 H Calcium Magnesium AST ALT Alkaline Phosphatase Urine Protein Trace H - Diagnostic Findings Chest x-ray: image reviewed Assessment and Plan Assessment: Possible acute COPD exacerbation Acute hypoxemic respiratory failure, currently on 4 L/min nasal cannula History of paroxysmal atrial fibrillation, currently sinus mechanism, anticoagulated on Eliquis Hypertension History of frequent urinary tract infections History of lupus, with previous immunotherapy infusion History of RA History of hypothyroidism History of osteoarthritis and multiple previous orthopedic surgeries Gait dysfunction Former tobacco smoker [facility] resident Anxiety/depression Plan: Patient's medications, labs, chest x-ray reviewed chest x-ray which shows a stable cardiac silhouette, suspect tiny bilateral pleural effusions, right chest Mediport and loop recorder. No obvious focal infiltrates or evidence of pneumonia, pneumothoraces, nodules or masses. Viral screen negative for influenza, RSV, COVID Previously started on a combination of DuoNebs, Symbicort Hailer, and IV Solu- Medrol 60 mg every 6 hours Continue supplemental oxygen to maintain oxygen saturation of 92% or greater Reportedly, has a new patient visit in the pulmonary office with Dr. Tariq in July I have personally seen and examined the patient, performed the documentation and the assessment and plan as written. Number of minutes spent on the visit:20 This is a joint evaluation that was done along with the nurse practitioner. The patient was seen and evaluated. Evaluation was done and 31 minutes. The patient is presenting to us from [facility]. She had increased shortness of breath and is-the patient has dehydration and she was lethargic with diminished oral intake. The patient was also bronchospastic and wheezy and she had an acute COPD exacerbation. Currently is on 4 L of oxygen by nasal cannula. Current rhythm is sinus and the patient has been anticoagulated for Eliquis for paroxysmal atrial fibrillation. She has history of lupus/RA. Her viral screen was essentially negative. She is on Symbicort, DuoNeb treatments and IV Solu- Medrol. Condition is stable. Hemodynamically stable. Labs were reviewed. Will continue to follow. Procalcitonin level is at 0.48. UA was negative. Time with Patient: Greater than 30
[2024-07-17 05:38] LABS: ALT 72 U/L (4-34); AST 48 U/L (14-36); African American GFR (CKD) 69 (>60 ml/min/1.73 sqM); Albumin 3.1 g/dL (3.5-5.0); Alkaline Phosphatase 140 U/L (38-126); Anion Gap 6 mmol/L; Blood Urea Nitrogen 22 mg/dL (7-17); Calcium 8.5 mg/dL (8.4-10.2); Carbon Dioxide 34 mmol/L (22-30); Chloride 93 mmol/L (98-107); Glucose 122 mg/dL (74-99); Magnesium 2.6 mg/dL (1.6-2.3); Non-African American GFR(CKD) 60 (>60 ml/min/1.73 sqM); Potassium 4.1 mmol/L (3.5-5.1); Sodium 133 mmol/L (137-145); Total Bilirubin 0.5 mg/dL (0.2-1.3); Total Protein 5.6 g/dL (6.3-8.2)
[2024-07-17] MEDS: LEVOTHYROXINE 50 MCG TAB PO SCH (06:14)
[2024-07-17] MEDS: PANTOPRAZOLE 40 MG TABLET PO SCH (06:14)
[2024-07-17] MEDS: CALCIUM CARBONATE 500 MG CHEWABLE PO SCH (06:14)
[2024-07-17] MEDS: DICYCLOMINE 20 MG TAB PO SCH (06:15)
[2024-07-17] MEDS: ASCORBIC ACID 500 MG TAB PO SCH (06:15)
[2024-07-17] MEDS ORDERED: NON FORMULARY DRUG (Bumetanide [Bumex] 2 MG Tablet) PO SCH (07:00)
[2024-07-17] MEDS: SYMBICORT 160-4.5 MCG INHALER INHALATION SCH (07:47)
[2024-07-17] MEDS ORDERED: SYMBICORT 80-4.5 MCG INHALER INHALATION SCH (08:00)
--- NOTE | 2024-07-17 10:39 | US ---
EXAMINATION TYPE: US venous doppler duplex LE DATE OF EXAM: 07/17/2024 10:15 AM COMPARISON: NONE CLINICAL INDICATION: Female, 68 years old with history of swelling, elevated d-dimer; No hx of DVT. P atient is on eliquis. Elevated D dimer. TECHNIQUE: The lower extremity deep venous system is examined utilizing real time linear array sonog shahida with graded compression, color doppler sonography, and spectral doppler. SIDE PERFORMED: Bilateral FINDINGS: VESSELS IMAGED: Common Femoral Vein Deep Femoral Vein Greater Saphenous Vein * Femoral Vein Popliteal Vein Small Saphenous Vein * Proximal Calf Veins (* superficial vessels) Right Leg: No evidence of DVT. Prox calf veins not well seen. PTV/peroneal veins not seen. Difficult to scan behind the knee due to positioning. Left Leg: No evidence of DVT. Prox calf veins not seen. Peroneal veins not seen. Difficult to scan behind the knee due to positioning. IMPRESSION: No visualized deep venous thrombosis. The proximal calf veins and peroneal veins are not visualized d ue to positioning. [facility], , 07/17/2024 10:37 AM
--- NOTE | 2024-07-17 11:08 | CT ---
EXAMINATION TYPE: CT chest angio for PE CT DLP: 493.20 mGycm, Automated exposure control for dose reduction was used. DATE OF EXAM: 07/17/2024 10:56 AM COMPARISON: Chest radiograph 07/16/2024, CT abdomen and pelvis 03/27/2024 CLINICAL INDICATION:Female, 68 years old with history of Dyspnea; Dyspnea, elevated dimer TECHNIQUE/CONTRAST: CTA scan of the thorax is performed with IV Contrast, patient injected with 80 mL of Isovue 370, pulm onary embolism protocol. MIP images are created and reviewed. FINDINGS: Pulmonary Artery: There is no evidence for a filling defect within the pulmonary vasculature to sugge st acute pulmonary embolism. The pulmonary artery is of normal size. Lungs/Pleura: No pleural effusion or pneumothorax. There is bibasilar dependent consolidative opaciti es. Groundglass opacity within the medial aspect of the right upper lobe measuring up to 7 mm. A fiss ural lymph node measuring 7 mm along the right minor fissure. Airway: Large airways are patent. Heart: Heart is within normal limits for size.. No pericardial effusion Vasculature: No evidence of aortic aneurysm. Mild atherosclerotic calcification of the aorta and its branches. The anterior chest wall IJ Mediport catheter with distal tip terminating in the superior ca voatrial junction. Mediastinum: No evidence of adenopathy. Musculoskeletal: No acute osseous abnormalities. Left shoulder arthroplasty changes. No aggressive os seous abnormality. Mild multilevel degenerative disc disease. Soft Tissues: Loop recorder within the left anterior chest wall subcutaneous tissues. Lower neck: No significant findings. Upper Abdomen: Gallbladder is surgically absent with similar associated extrahepatic biliary duct dil atation likely related to cholecystectomy physiology. IMPRESSION: 1. No evidence of pulmonary embolism. 2. Mild bibasilar dependent consolidative opacities which may represent atelectasis versus developing pneumonia. Additional right upper lobe groundglass opacity. Consider follow-up CT chest in 6-12 jose juan hs. [facility], , 07/17/2024 11:06 AM
[2024-07-17] MEDS ORDERED: PNEUMONIA PROTOCOL UTILIZED 1 EACH MISC PO PRN (11:21)
--- NOTE | 2024-07-17 11:23 | P.HPIM ---
History of Present Illness H&P Date: 07/17/24 History of present illness; patient is a 68-year-old lady with past medical history significant for atrial fibrillation, hypertension, COPD who was sent in from [facility] for shortness of breath. Most of the history has been obtained from the EMR according to which patient has been complaining of shortness of breath for the last few days. Patient stated that she is short of breath at rest. Patient also complaining of cough. There is no complaint of fever or chills. Patient does not ambulate. Patient denies any chest pain but there is no complaint of orthopnea or PND. There is no complaint of swelling of feet. Because of shortness of breath, patient was found to be hypoxemic and was placed on oxygen. Because of shortness of breath, patient brought to the ER Initial lab work done in the ER showed WBC 9.3, hemoglobin 11, platelet count 267, sodium 131, potassium 5.2, BUN 20, creatinine 0.94, glucose 100, calcium 8.3, magnesium 2.6, AST 87, ALT 84 alk phos 154 UA negative for infection Influenza A not detected Influenza B not detected RSV not detected COVID-19 not detected EKG done in the ER showed heart rate of , no ST segment elevation or depression seen, no T-wave inversions seen. Chest x-ray done in the ER showed tiny pleural effusion with no other significant abnormality seen Patient admitted to internal medicine service REVIEW OF SYSTEMS: CONSTITUTIONAL: No fever, no malaise, no fatigue. HEENT: No recent visual problems or hearing problems. Denied any Cardiovascular; as mentioned above PULMONARY: As mentioned above GASTROINTESTINAL: No diarrhea, no nausea, no vomiting, no abdominal pain. NEUROLOGICAL: No headaches, no weakness, no numbness. HEMATOLOGICAL: Denies any bleeding or petechiae. GENITOURINARY: Denies any burning micturition, frequency, or urgency. MUSCULOSKELETAL/RHEUMATOLOGICAL: Denies any joint pain, swelling, or any muscle pain. ENDOCRINE: Denies any polyuria or polydipsia. The rest of the 14-point review of systems is negative. PHYSICAL EXAMINATION: GENERAL: The patient is alert and oriented x3, not in any acute distress. Well developed, well nourished. HEENT: Pupils are round and equally reacting to light. EOMI. No scleral icterus. No conjunctival pallor. Normocephalic, atraumatic. No pharyngeal erythema. No thyromegaly. CARDIOVASCULAR: S1 and S2 present. No murmurs, rubs, or gallops. PULMONARY: coarse breath sounds bilaterally, no wheezing or crackles. ABDOMEN: Soft, nontender, nondistended, normoactive bowel sounds. No palpable organomegaly. MUSCULOSKELETAL: No joint swelling or deformity. EXTREMITIES: No cyanosis, clubbing, or pedal edema. NEUROLOGICAL: Gross neurological examination did not reveal any focal deficits. SKIN: No rashes. Assessment and plan Acute hypoxic respiratory failure Acute COPD exacerbation Hyponatremia Hyperkalemia Acute transaminitis Hypertension History of frequent urinary tract infections History of lupus, with previous immunotherapy infusion History of RA History of hypothyroidism History of osteoarthritis and multiple previous orthopedic surgeries Gait dysfunction Anxiety/depression Monitor vital signs Monitor CBC Monitor CMP Continue telemetry monitoring Ordered oxygen supplementation Ordered aggressive bronchopulmonary hygiene Ordered IV Solu-Medrol Ordered IV Rocephin, azithromycin Ordered breathing treatment Ordered CT angio chest PE protocol Ordered ultrasound lower extremities bilaterally Resume home med Consult pulmonary Labs and medication were reviewed.. Continue same treatment. Continue with symptomatic treatment. Resume home medication. Monitor labs and vitals. DVT and GI prophylaxis. Further recommendations as per clinical course of the patient Dictation was produced using Octavian dictation software. please excuse any grammatical, word or spelling errors. Past Medical History Past Medical History: Atrial Fibrillation, COPD, CVA/TIA, GERD/Reflux, Hypertension, Renal Disease, Rheumatoid Arthritis (RA), Skin Disorder, Vascular Disorder Additional Past Medical History / Comment(s): Pt states, "I have a monitor under my skin in the middle of my chest that monitors my heart through my phone."Falls- Pt states, "I passed out in August of 2022." "I wasn't found for 3 days." "I went to [facility] and the ER said possible TIA." "My speech was slurred at that episode." "It's good now." "I didn't have any further testing.", stage II kidney disease, Raynaud's, Lupus and connective tissue disease, rotator cuff issues to rt shoulder, 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 History of Any Multi-Drug Resistant Organisms: None Reported Past Surgical History: Cholecystectomy, Joint Replacement, Orthopedic Surgery Additional Past Surgical History / Comment(s): Bilat shoulder, right hip, right knee x 2, bi lat mediport, cataracts bi lat. Past Anesthesia/Blood Transfusion Reactions: No Reported Reaction Additional Past Anesthesia/Blood Transfusion Reaction / Comment(s): Hx of blood transfusion-no reaction. Date of Last Stent Placement:: 08/09/23 Past Psychological History: Anxiety Smoking Status: Former smoker Past Alcohol Use History: None Reported Additional Past Alcohol Use History / Comment(s): vapes menthol Past Drug Use History: None Reported - Past Family History Father Family Medical History: No Reported History Medications and Allergies Home Medications Medication Instructions Recorded Confirmed Type Bumetanide [BUMEX] 2 mg PO BID@0700,1100 01/23/23 07/16/24 History DULoxetine HCL [Cymbalta] 60 mg PO HS 01/23/23 07/16/24 History Fluticasone Nasal [place] [Flonase 1 spr EA NOSTRIL DAILY 01/23/23 07/16/24 History Nasal [place]] Levothyroxine Sodium [Synthroid] 50 mcg PO DAILY@0500 01/23/23 07/16/24 History Metoprolol Succinate [Metoprolol 12.5 mg PO DAILY 01/23/23 07/16/24 History Succinate ER] Mirabegron [Myrbetriq] 50 mg PO DAILY 01/23/23 07/16/24 History Montelukast [Singulair] 10 mg PO HS 01/23/23 07/16/24 History Potassium Chloride ER [K-Dur 20] 20 meq PO DAILY 01/23/23 07/16/24 History Pregabalin [Lyrica] 50 mg PO BID 01/23/23 07/16/24 History traZODone HCL 300 mg PO HS 01/23/23 07/16/24 History traZODone HCL [Desyrel] 50 mg PO HS 01/23/23 07/16/24 History ALPRAZolam [Xanax] 0.5 mg PO TID 07/04/23 07/16/24 History Albuterol Inhaler [Ventolin Hfa 2 puff INHALATION RT-Q4H PRN 07/04/23 07/16/24 History Inhaler] Butalb/APAP/Caff 50-325-40Mg 1 tab PO Q4H PRN 07/04/23 07/16/24 History [Fioricet 50-325-40] Fluticasone Propion/Salmeterol 1 puff INHALATION RT-BID 07/04/23 07/16/24 History [Advair 250-50 Diskus] Cetirizine HCl [Zyrtec] 10 mg PO DAILY 03/27/24 07/16/24 History Cyanocobalamin (Vitamin B-12) 1,000 mcg PO HS 03/27/24 07/16/24 History [Vitamin B-12] Dicyclomine HCl 20 mg PO TID@0700,1300,1900 03/27/24 07/16/24 History Docusate Sodium [Dok] 100 mg PO BID 03/27/24 07/16/24 History Ferrous Sulfate [Iron (65 MG 325 mg PO HS 03/27/24 07/16/24 History Elemental)] Lanolin/Mineral Oil [Eucerin 1 applic TOPICAL HS 03/27/24 07/16/24 History Original Lotion] Naloxone HCl 0.4 mg IM DIRECTED PRN 03/27/24 07/16/24 History Naloxone HCl 4 mg NASAL DIRECTED PRN 03/27/24 07/16/24 History Omeprazole [PriLOSEC] 20 mg PO BID 03/27/24 07/16/24 History fluocinolone acetonide oiL 2 drops BOTH EARS Q2D@2100 03/27/24 07/16/24 History [fluocinolone acetonide oiL 0.01% (Otic)] polyethylene glycoL 3350 [Miralax] 17 gm PO BID 03/27/24 07/16/24 History Acetaminophen [Tylenol 8 Hour] 650 mg PO Q6H PRN 06/09/24 07/16/24 History Ascorbic Acid [Vitamin C] 500 mg PO DAILY@0700 06/09/24 07/16/24 History Magnesium Hydroxide [Milk of 2,400 mg PO DAILY PRN 06/09/24 07/16/24 History Magnesia] cloNIDine HCL [Catapres] 0.1 mg PO Q24H PRN 06/09/24 07/16/24 History Apixaban [Eliquis] 5 mg PO BID 06/11/24 07/16/24 History Clopidogrel [Plavix] 75 mg PO HS 06/11/24 07/16/24 History Calcium Carbonate [Tums] 500 mg PO TID@0600,1100,1600 06/30/24 07/16/24 History Ergocalciferol [Vitamin D2 (1250 1,250 mcg PO TU@0700 06/30/24 07/16/24 History Mcg = 94253 Iu)] Lactobacillus Acidophilus 1 cap PO BID 06/30/24 07/16/24 History [Acidophilus] Loperamide HCl [Imodium A-D] 2 - 4 mg PO QID PRN 06/30/24 07/16/24 History Metamucil Smooth Texture 58.6% 1 packet PO Q8H PRN 06/30/24 07/16/24 History Oral Powder Ocular Vitamins 1 tab PO BID 06/30/24 07/16/24 History Sennosides [Senokot] 17.2 tab PO BID 06/30/24 07/16/24 History Tramadol 100mg 100 mg PO Q6H 06/30/24 07/16/24 History predniSONE 5 mg PO DAILY 06/30/24 07/16/24 History tiZANidine [Zanaflex] 2 mg PO Q8HR PRN 06/30/24 07/16/24 History Etanercept [Enbrel] 50 mg SQ WE 07/16/24 07/16/24 History Ipratropium-Albuterol Nebulize 3 ml INHALATION RT-Q4H 07/16/24 07/16/24 History [Duoneb 0.5 mg-3 mg/3 ml Soln] guaiFENesin [guaiFENesin ER] 600 mg PO Q12H 07/16/24 07/16/24 History Allergies Allergy/AdvReac Type Severity Reaction Status Date / Time cephalexin [From Keflex] Allergy Rash/Hives Verified 07/16/24 15:50 ciprofloxacin [From Cipro] Allergy Rash/Hives Verified 07/16/24 15:50 nitrofurantoin Allergy Unknown Verified 07/16/24 15:50 [From Macrobid] Penicillins Allergy Rash/Hives Verified 07/16/24 15:50 Sulfa (Sulfonamide Allergy "passed Verified 07/16/24 15:50 Antibiotics) out and quit breathing" Physical Exam Vitals: Vital Signs Temp Pulse Pulse Resp BP BP Pulse Ox 07/17/24 07:50 82 07/17/24 07:28 97.6 F 73 20 124/72 95 07/17/24 02:00 97.7 F 66 22 161/82 97 07/16/24 20:34 75 18 07/16/24 20:27 73 18 07/16/24 20:26 98.9 F 74 18 132/77 96 07/16/24 19:58 80 18 128/66 95 07/16/24 18:02 79 18 130/60 96 07/16/24 15:05 95 07/16/24 14:49 99.9 F H 104 H 22 130/79 86 L Intake and Output 07/16/24 07/17/24 07/17/24 22:59 06:59 14:59 Output Total 825 Balance -825 Output: Urine 825 Other: Voiding Method External Catheter # Bowel Movements 1 Weight 86.183 kg Results CBC & Chem 7: 07/16/24 15:31 07/17/24 02:46 Labs: Abnormal Lab Results - Last 24 Hours (Table) 07/16/24 07/16/24 07/16/24 Range/Units 15:31 15:31 15:31 Hgb 11.0 L (11.4-16.0) gm/dL RDW 16.3 H (11.5-15.5) % Neutrophils # 8.4 H (1.3-7.7) k/uL Lymphocytes # 0.3 L (1.0-4.8) k/uL D-Dimer (<0.60) mg/L FEU VBG pCO2 57 H (37-51) mmHg VBG HCO3 35 H (24-28) mmol/L Sodium 131 L (137-145) mmol/L Potassium 5.2 H (3.5-5.1) mmol/L Chloride 92 L (98-107) mmol/L Carbon Dioxide 33 H (22-30) mmol/L BUN 20 H (7-17) mg/dL Glucose 100 H (74-99) mg/dL POC Glucose (mg/dL) (70-110) mg/dL Calcium 8.3 L (8.4-10.2) mg/dL Magnesium 2.6 H (1.6-2.3) mg/dL AST 87 H (14-36) U/L ALT 84 H (4-34) U/L Alkaline Phosphatase 154 H (38-126) U/L Total Protein (6.3-8.2) g/dL Albumin (3.5-5.0) g/dL Urine Protein (Negative) 07/16/24 07/16/24 07/17/24 Range/Units 16:31 22:55 02:46 Hgb (11.4-16.0) gm/dL RDW (11.5-15.5) % Neutrophils # (1.3-7.7) k/uL Lymphocytes # (1.0-4.8) k/uL D-Dimer (<0.60) mg/L FEU VBG pCO2 (37-51) mmHg VBG HCO3 (24-28) mmol/L Sodium 133 L (137-145) mmol/L Potassium (3.5-5.1) mmol/L Chloride 93 L (98-107) mmol/L Carbon Dioxide 34 H (22-30) mmol/L BUN 22 H (7-17) mg/dL Glucose 122 H (74-99) mg/dL POC Glucose (mg/dL) 114 H (70-110) mg/dL Calcium (8.4-10.2) mg/dL Magnesium 2.6 H (1.6-2.3) mg/dL AST 48 H (14-36) U/L ALT 72 H (4-34) U/L Alkaline Phosphatase 140 H (38-126) U/L Total Protein 5.6 L (6.3-8.2) g/dL Albumin 3.1 L (3.5-5.0) g/dL Urine Protein Trace H (Negative) 07/17/24 Range/Units 02:46 Hgb (11.4-16.0) gm/dL RDW (11.5-15.5) % Neutrophils # (1.3-7.7) k/uL Lymphocytes # (1.0-4.8) k/uL D-Dimer 2.00 H (<0.60) mg/L FEU VBG pCO2 (37-51) mmHg VBG HCO3 (24-28) mmol/L Sodium (137-145) mmol/L Potassium (3.5-5.1) mmol/L Chloride (98-107) mmol/L Carbon Dioxide (22-30) mmol/L BUN (7-17) mg/dL Glucose (74-99) mg/dL POC Glucose (mg/dL) (70-110) mg/dL Calcium (8.4-10.2) mg/dL Magnesium (1.6-2.3) mg/dL AST (14-36) U/L ALT (4-34) U/L Alkaline Phosphatase (38-126) U/L Total Protein (6.3-8.2) g/dL Albumin (3.5-5.0) g/dL Urine Protein (Negative) Thrombosis Risk Factor Assmnt - Choose All That Apply Any of the Below Risk Factors Present?: Yes Each Factor Represents 1 point: Abnormal pulmonary function (COPD) Other Risk Factors: Yes Each Risk Factor Represents 2 Points: Age 61-74 years Thrombosis Risk Factor Assessment Total Risk Factor Score: 3 Thrombosis Risk Factor Assessment Level: Moderate Risk
[2024-07-17] MEDS: METOPROLOL SUCCINATE (ER) 25 MG TAB.ER.24H PO SCH (12:11)
[2024-07-17] MEDS: DOCUSATE 100 MG CAP PO SCH (12:13)
[2024-07-17] MEDS: LORATADINE 10 MG TAB PO SCH (12:13)
[2024-07-17] MEDS: NON FORMULARY DRUG (Mirabegron [Myrbetriq] 50 MG Tab.Er.24h) PO SCH (12:23)
[2024-07-17] MEDS: LACTOBACILLUS ACIDOPHILUS/PECT 1 EACH CAPSULE PO SCH (12:23)
[2024-07-17] MEDS: FLUTICASONE NASAL 50MCG/SPRAY 16GM BTL EA NOSTRIL SCH (12:23)
--- NOTE | 2024-07-17 13:42 | XR ---
Chest, 2 view. CLINICAL INDICATION: Female, 68 years old with history of Pneumonia COMPARISON: TECHNIQUE: PA and lateral views the chest are obtained. FINDINGS: Stable tiny bilateral pleural effusions. No change in the right Mediport catheter tip. No change in t he loop recorder. The heart and pulmonary vasculature are normal. The osseous structures are intact with the exception of a left reverse shoulder prosthesis. IMPRESSION: Tiny bilateral pleural effusions with no interval change. [facility], , 07/17/2024 1:40 PM
[2024-07-17] MEDS: AZITHROMYCIN 500 MG TAB PO SCH (20:25)
[2024-07-17] MEDS: CYANOCOBALAMIN 500 MCG TAB PO SCH (20:25)
[2024-07-17] MEDS: FERROUS SULFATE 325 MG TAB PO SCH (20:26)
[2024-07-17] MEDS: MINERAL OIL-WHITE PETROLATUM 120 GM JAR TOPICAL SCH (20:26)
[2024-07-18 04:05] LABS: Anisocytosis Slight; Basophils % (A) 0 %; Eosinophils % (A) 0 %; HCT 32.2 % (34.0-46.0); HGB 10.3 gm/dL (11.4-16.0); Hypochromasia Slight; Lymphocytes # (A) 0.4 k/uL (1.0-4.8); Lymphocytes % (A) 4 %; MCV 84.3 fL (80.0-100.0); Monocytes # (A) 0.2 k/uL (0-1.0); Monocytes % (A) 2 %; Neutrophils # (A) 9.7 k/uL (1.3-7.7); Neutrophils % (A) 94 %; Platelet Count 296 k/uL (150-450); RBC 3.82 m/uL (3.80-5.40); RDW 16.1 % (11.5-15.5); WBC 10.3 k/uL (3.8-10.6)
[2024-07-18 04:22] LABS: ALT 50 U/L (4-34); AST 22 U/L (14-36); African American GFR (CKD) 74 (>60 ml/min/1.73 sqM); Alkaline Phosphatase 115 U/L (38-126); Anion Gap 5 mmol/L; Blood Urea Nitrogen 23 mg/dL (7-17); Calcium 8.8 mg/dL (8.4-10.2); Carbon Dioxide 33 mmol/L (22-30); Chloride 96 mmol/L (98-107); Glucose 168 mg/dL (74-99); Non-African American GFR(CKD) 64 (>60 ml/min/1.73 sqM); Potassium 3.9 mmol/L (3.5-5.1); Sodium 134 mmol/L (137-145); Total Bilirubin 0.2 mg/dL (0.2-1.3); Total Protein 5.5 g/dL (6.3-8.2)
[2024-07-18] MEDS: BUTALB/APAP/CAFF 50-325-40MG TAB PO PRN (09:48)
[2024-07-18] MEDS: polyethylene glycoL 3350 17 GM POWD.PACK PO PRN (13:06)
--- NOTE | 2024-07-18 13:23 | P.PN ---
Subjective Progress Note Date: 07/18/24 patient is a 68-year-old lady with past medical history significant for atrial fibrillation, hypertension, COPD who was sent in from [facility] for shortness of breath. Most of the history has been obtained from the EMR according to which patient has been complaining of shortness of breath for the last few days. Patient stated that she is short of breath at rest. Patient also complaining of cough. There is no complaint of fever or chills. Patient does not ambulate. Patient denies any chest pain but there is no complaint of orthopnea or PND. There is no complaint of swelling of feet. Because of shortness of breath, patient was found to be hypoxemic and was placed on oxygen. Because of shortness of breath, patient brought to the ER Initial lab work done in the ER showed WBC 9.3, hemoglobin 11, platelet count 267, sodium 131, potassium 5.2, BUN 20, creatinine 0.94, glucose 100, calcium 8.3, magnesium 2.6, AST 87, ALT 84 alk phos 154 UA negative for infection Influenza A not detected Influenza B not detected RSV not detected COVID-19 not detected EKG done in the ER showed heart rate of , no ST segment elevation or depression seen, no T-wave inversions seen. Chest x-ray done in the ER showed tiny pleural effusion with no other significant abnormality seen Patient admitted to internal medicine service 07/09. Patient seen and examined. States breathing has improved. Complaining of constipation. Patient is currently on stool softeners. Vital signs stable REVIEW OF SYSTEMS: CONSTITUTIONAL: No fever, no malaise,. CARDIOVASCULAR: No chest pain, no palpitations, no syncope. PULMONARY: No shortness of breath, no cough, GASTROINTESTINAL: No diarrhea, no nausea, no vomiting, no abdominal pain. NEUROLOGICAL: No headaches, no weakness, PHYSICAL EXAMINATION: GENERAL: The patient is alert and oriented x3, not in any acute distress. Well developed, well nourished. HEENT: Pupils are round and equally reacting to light. EOMI. No scleral icterus. No conjunctival pallor. Normocephalic, atraumatic. No pharyngeal erythema. No thyromegaly. CARDIOVASCULAR: S1 and S2 present. No murmurs, rubs, or gallops. PULMONARY: Chest is clear to auscultation, no wheezing or crackles. ABDOMEN: Soft, nontender, nondistended, normoactive bowel sounds. No palpable organomegaly. MUSCULOSKELETAL: No joint swelling or deformity. EXTREMITIES: No cyanosis, clubbing, or pedal edema. NEUROLOGICAL: Gross neurological examination did not reveal any focal deficits. SKIN: No rashes. Assessment and plan Acute hypoxic respiratory failure Acute COPD exacerbation Hyponatremia Hyperkalemia Acute transaminitis Hypertension History of frequent urinary tract infections History of lupus, with previous immunotherapy infusion History of RA History of hypothyroidism History of osteoarthritis and multiple previous orthopedic surgeries Gait dysfunction Anxiety/depression Monitor vital signs Monitor CBC Monitor CMP Continue telemetry monitoring Continue oxygen supplementation and aggressive bronchopulmonary hygiene Continue IV Solu-Medrol Continue azithromycin Aggressive bowel regimen Pulmonology following Labs and medication were reviewed.. Continue same treatment. Continue with symptomatic treatment. Resume home medication. Monitor labs and vitals. DVT and GI prophylaxis. Further recommendations as per clinical course of the patient Dictation was produced using X[employer] dictation software. please excuse any grammatical, word or spelling errors. Objective - Vital Signs Vital signs: Vital Signs Temp 98.2 F 07/18/24 07:04 Pulse 88 07/18/24 12:03 Resp 18 07/18/24 10:52 BP 127/70 07/18/24 07:04 Pulse Ox 98 07/18/24 07:04 FiO2 Intake & Output 07/17/24 07/18/24 07/18/24 18:59 06:59 18:59 Intake Total 480 Output Total 850 375 350 Balance -370 -375 -350 Intake: Oral 480 Output: Urine 850 375 350 Other: Voiding Method External Catheter External Catheter # Bowel Movements 1 - Labs CBC & Chem 7: 07/18/24 03:49 07/18/24 03:43 Labs: Abnormal Lab Results - Last 24 Hours (Table) 07/18/24 07/18/24 Range/Units 03:43 03:49 Hgb 10.3 L (11.4-16.0) gm/dL Hct 32.2 L (34.0-46.0) % RDW 16.1 H (11.5-15.5) % Neutrophils # 9.7 H (1.3-7.7) k/uL Lymphocytes # 0.4 L (1.0-4.8) k/uL Sodium 134 L (137-145) mmol/L Chloride 96 L (98-107) mmol/L Carbon Dioxide 33 H (22-30) mmol/L BUN 23 H (7-17) mg/dL Glucose 168 H (74-99) mg/dL ALT 50 H (4-34) U/L Total Protein 5.5 L (6.3-8.2) g/dL Albumin 3.0 L (3.5-5.0) g/dL Microbiology - Last 24 Hours (Table) 07/16/24 15:31 Blood Culture - Preliminary Blood
--- NOTE | 2024-07-18 14:24 | P.PN ---
Subjective Progress Note Date: 07/18/24 Patient is a 68-year-old female, sent in from her ECF, [facility], with symptoms of dyspnea, cough, lethargy, and reduced oral intake. She has been requiring supplemental oxygen at outside facility. She is a poor historian, and often contradicts herself. Documented past medical history including atrial fibrillation, hypertension, rheumatoid arthritis, lupus, former tobacco dependence, and COPD. Also, she has had multiple orthopedic surgeries, nonambulatory, and unable to take care of herself independently. Workup in the emergency department including a chest x-ray which shows a stable cardiac silhouette, suspect tiny bilateral pleural effusions, right chest Mediport and loop recorder. No obvious focal infiltrates or evidence of pneumonia, pneumothoraces, nodules or masses. Viral screen negative for influenza, RSV, COVID. She is known to have frequent urinary tract infections, recently underwent cystoscopy in May,. Urinalysis unremarkable for infection. CBC: WBC count 9.3, hemoglobin 11, platelets 267. CMP: Sodium 131, potassium 5.2, chloride 92, serum bicarb 33, BUN 20, creatinine 0.94, glucose 100. Lactic 0.7. LFTs mildly elevated. Troponin 0.019, NT proBNP 706. EKG: Normal sinus, rate 88 bpm, RBB pattern, no obvious acute ischemic changes. VBG with a pH of 7.39, pCO2 57. A pulmonary consult was placed for COPD. Patient currently being evaluated in observation unit. She is resting comfortably on 4 L/min nasal cannula. Alert and oriented x 3. On interview, states she had a cold approximately 1 month ago. She has been short of breath since then. Occasional nonproductive cough. Sleeping a lot. Reduced appetite. She is unfamiliar with her inhalers. No longer smokes cigarettes. It appears she has a new patient visit in the pulmonary office 07/31/2024. Denies any chest pain, heart palpitations, lightheadedness/syncope, lower extremity edema. A secondary concern of the patient, is constipation. Reportedly, has not had a bowel moveme nt in 5 days. Abdomen is soft and does not appear nonacute. States this is a common problem. Receiving Senokot and as needed MiraLAX. Most recent vital signs: Temperature 98.9 F, heart rate 74 bpm, blood pressure 132/77 mmHg, nontachypneic, SpO2 recorded at 96% on 4 L/min nasal cannula. 07/18/2024, the patient is feeling better.This is Less bronchospastic and less congested and less wheezing on today's examination. She remains on bronchodilators and steroids. No new complaints otherwise for now. Oxygenation is improved and the patient is currently on 3 L of O2 with a pulse ox of 98%. White cell count of 10.3 with a hemoglobin 10.3 and a platelet count of 296. BUN is 23 and a creatinine of 0.91. Potassium level is at 3.9. Legionella urine antigen was negative. Viral 4 Plex was also negative. The patient is doing well for now. Objective - Vital Signs Vital signs: Vital Signs Temp 98.2 F 07/18/24 07:04 Pulse 90 07/18/24 11:52 Resp 18 07/18/24 10:52 BP 127/70 07/18/24 07:04 Pulse Ox 98 07/18/24 07:04 FiO2 Intake & Output 07/17/24 07/18/24 07/18/24 18:59 06:59 18:59 Intake Total 480 Output Total 850 375 350 Balance -370 -375 -350 Intake: Oral 480 Output: Urine 850 375 350 Other: Voiding Method External Catheter External Catheter # Bowel Movements 1 - Exam GENERAL EXAM: Alert, 68-year-old white female, weak and unable to sit up in bed without assistance, comfortable in no apparent distress. HEAD: Normocephalic and atraumatic EYES: Normal reaction of pupils, equal size. NOSE: Clear with pink turbinates. THROAT: No erythema or exudates. NECK: No masses, no JVD. CHEST: No chest wall deformity. Right chest Mediport LUNGS: Equal air entry with diminished lung sounds bilaterally and throughout. No crackles, wheezes, rhonchi. On 4 L/min nasal cannula. No conversational dyspnea or accessory muscle use while at rest CVS: S1 and S2 normal with no audible murmur, regular rhythm. No extra heart sounds ABDOMEN: No hepatosplenomegaly, active bowel sounds, no guarding or rigidity. SPINE: No scoliosis or deformity SKIN: No rashes CENTRAL NERVOUS SYSTEM: No focal deficits, tone is normal in all 4 extremities. EXTREMITIES: There is no peripheral edema, clubbing, or cyanosis. Peripheral pulses are intact. - Labs CBC & Chem 7: 07/18/24 03:49 07/18/24 03:43 Labs: Abnormal Lab Results - Last 24 Hours (Table) 07/18/24 07/18/24 Range/Units 03:43 03:49 Hgb 10.3 L (11.4-16.0) gm/dL Hct 32.2 L (34.0-46.0) % RDW 16.1 H (11.5-15.5) % Neutrophils # 9.7 H (1.3-7.7) k/uL Lymphocytes # 0.4 L (1.0-4.8) k/uL Sodium 134 L (137-145) mmol/L Chloride 96 L (98-107) mmol/L Carbon Dioxide 33 H (22-30) mmol/L BUN 23 H (7-17) mg/dL Glucose 168 H (74-99) mg/dL ALT 50 H (4-34) U/L Total Protein 5.5 L (6.3-8.2) g/dL Albumin 3.0 L (3.5-5.0) g/dL Microbiology - Last 24 Hours (Table) 07/16/24 15:31 Blood Culture - Preliminary Blood Assessment and Plan Assessment: Possible acute COPD exacerbation Acute hypoxemic respiratory failure, currently on 4 L/min nasal cannula History of paroxysmal atrial fibrillation, currently sinus mechanism, anticoagulated on Eliquis Hypertension History of frequent urinary tract infections History of lupus, with previous immunotherapy infusion History of RA History of hypothyroidism History of osteoarthritis and multiple previous orthopedic surgeries Gait dysfunction Former tobacco smoker ECF resident Anxiety/depression Plan: Clinically improving Less bronchospastic and wheezy compared to yesterday We will continue same treatment chest x-ray which shows a stable cardiac silhouette, suspect tiny bilateral pleural effusions, right chest Mediport and loop recorder. No obvious focal infiltrates or evidence of pneumonia, pneumothoraces, nodules or masses. Viral screen negative for influenza, RSV, COVID Continue DuoNebs Symbicort Hailer Continue IV Solu-Medrol 60 mg every 6 hours Continue supplemental oxygen to maintain oxygen saturation of 92% or greater Hemodynamically stable. Labs were reviewed. Will continue to follow. Procalcitonin level is at 0.48. UA was negative. Time with Patient: Greater than 30
[2024-07-18] MEDS: NON FORMULARY DRUG (Fluocinolone Acetonide Oil [Fluocinolone Acetonide Oil 0.01% (Otic)] 2 BOTH EARS SCH (20:50)
[2024-07-19] MEDS: polyethylene glycoL 3350 17 GM POWD.PACK PO SCH (08:15)
--- NOTE | 2024-07-19 13:17 | P.PN ---
Subjective Progress Note Date: 07/19/24 patient is a 68-year-old lady with past medical history significant for atrial fibrillation, hypertension, COPD who was sent in from [facility] for shortness of breath. Most of the history has been obtained from the EMR according to which patient has been complaining of shortness of breath for the last few days. Patient stated that she is short of breath at rest. Patient also complaining of cough. There is no complaint of fever or chills. Patient does not ambulate. Patient denies any chest pain but there is no complaint of orthopnea or PND. There is no complaint of swelling of feet. Because of shortness of breath, patient was found to be hypoxemic and was placed on oxygen. Because of shortness of breath, patient brought to the ER Initial lab work done in the ER showed WBC 9.3, hemoglobin 11, platelet count 267, sodium 131, potassium 5.2, BUN 20, creatinine 0.94, glucose 100, calcium 8.3, magnesium 2.6, AST 87, ALT 84 alk phos 154 UA negative for infection Influenza A not detected Influenza B not detected RSV not detected COVID-19 not detected EKG done in the ER showed heart rate of , no ST segment elevation or depression seen, no T-wave inversions seen. Chest x-ray done in the ER showed tiny pleural effusion with no other significant abnormality seen Patient admitted to internal medicine service 07/18. Patient seen and examined. States breathing has improved. Complaining of constipation. Patient is currently on stool softeners. Vital signs stable 07/19. Patient seen and examined. Breathing has improved. Patient is going of anxiety secondary to IV Solu-Medrol. Will DC IV Solu-Medrol and switch to oral prednisone. Possible discharge Next 24 hours REVIEW OF SYSTEMS: CONSTITUTIONAL: No fever, no malaise,. CARDIOVASCULAR: No chest pain, no palpitations, no syncope. PULMONARY: No shortness of breath, no cough, GASTROINTESTINAL: No diarrhea, no nausea, no vomiting, no abdominal pain. NEUROLOGICAL: No headaches, no weakness, PHYSICAL EXAMINATION: GENERAL: The patient is alert and oriented x3, not in any acute distress. Well developed, well nourished. HEENT: Pupils are round and equally reacting to light. EOMI. No scleral icterus. No conjunctival pallor. Normocephalic, atraumatic. No pharyngeal erythema. No thyromegaly. CARDIOVASCULAR: S1 and S2 present. No murmurs, rubs, or gallops. PULMONARY: Chest is clear to auscultation, no wheezing or crackles. ABDOMEN: Soft, nontender, nondistended, normoactive bowel sounds. No palpable organomegaly. MUSCULOSKELETAL: No joint swelling or deformity. EXTREMITIES: No cyanosis, clubbing, or pedal edema. NEUROLOGICAL: Gross neurological examination did not reveal any focal deficits. SKIN: No rashes. Assessment and plan Acute hypoxic respiratory failure Acute COPD exacerbation Hyponatremia Hyperkalemia Acute transaminitis Hypertension History of frequent urinary tract infections History of lupus, with previous immunotherapy infusion History of RA History of hypothyroidism History of osteoarthritis and multiple previous orthopedic surgeries Gait dysfunction Anxiety/depression Monitor vital signs Monitor CBC Monitor CMP Continue telemetry monitoring Continue oxygen supplementation and aggressive bronchopulmonary hygiene DC Solu-Medrol, switch to prednisone Continue azithromycin Aggressive bowel regimen Pulmonology following Labs and medication were reviewed.. Continue same treatment. Continue with symptomatic treatment. Resume home medication. Monitor labs and vitals. DVT and GI prophylaxis. Further recommendations as per clinical course of the patient Dictation was produced using [employer] dictation software. please excuse any grammatical, word or spelling errors. Objective - Vital Signs Vital signs: Vital Signs Temp 98.1 F 07/19/24 08:00 Pulse 75 07/19/24 12:37 Resp 16 07/19/24 08:00 BP 158/76 07/19/24 08:00 Pulse Ox 96 07/19/24 12:31 FiO2 Intake & Output 07/18/24 07/19/24 07/19/24 18:59 06:59 18:59 Intake Total 240 222 Output Total 350 550 Balance -110 -328 Intake: Oral 240 222 Output: Urine 350 550 Other: Voiding Method External Catheter Indwelling Catheter Indwelling Catheter - Labs CBC & Chem 7: 07/18/24 03:49 07/18/24 03:43 Labs: Microbiology - Last 24 Hours (Table) 07/16/24 15:31 Blood Culture - Preliminary Blood
--- NOTE | 2024-07-19 15:29 | P.PN ---
Subjective Progress Note Date: 07/19/24 Patient is a 68-year-old female, sent in from her ECF, [facility], with symptoms of dyspnea, cough, lethargy, and reduced oral intake. She has been requiring supplemental oxygen at outside facility. She is a poor historian, and often contradicts herself. Documented past medical history including atrial fibrillation, hypertension, rheumatoid arthritis, lupus, former tobacco dependence, and COPD. Also, she has had multiple orthopedic surgeries, nonambulatory, and unable to take care of herself independently. Workup in the emergency department including a chest x-ray which shows a stable cardiac silhouette, suspect tiny bilateral pleural effusions, right chest Mediport and loop recorder. No obvious focal infiltrates or evidence of pneumonia, pneumothoraces, nodules or masses. Viral screen negative for influenza, RSV, COVID. She is known to have frequent urinary tract infections, recently underwent cystoscopy in May,. Urinalysis unremarkable for infection. CBC: WBC count 9.3, hemoglobin 11, platelets 267. CMP: Sodium 131, potassium 5.2, chloride 92, serum bicarb 33, BUN 20, creatinine 0.94, glucose 100. Lactic 0.7. LFTs mildly elevated. Troponin 0.019, NT proBNP 706. EKG: Normal sinus, rate 88 bpm, RBB pattern, no obvious acute ischemic changes. VBG with a pH of 7.39, pCO2 57. A pulmonary consult was placed for COPD. Patient currently being evaluated in observation unit. She is resting comfortably on 4 L/min nasal cannula. Alert and oriented x 3. On interview, states she had a cold approximately 1 month ago. She has been short of breath since then. Occasional nonproductive cough. Sleeping a lot. Reduced appetite. She is unfamiliar with her inhalers. No longer smokes cigarettes. It appears she has a new patient visit in the pulmonary office 07/31/2024. Denies any chest pain, heart palpitations, lightheadedness/syncope, lower extremity edema. A secondary concern of the patient, is constipation. Reportedly, has not had a bowel moveme nt in 5 days. Abdomen is soft and does not appear nonacute. States this is a common problem. Receiving Senokot and as needed MiraLAX. Most recent vital signs: Temperature 98.9 F, heart rate 74 bpm, blood pressure 132/77 mmHg, nontachypneic, SpO2 recorded at 96% on 4 L/min nasal cannula. 07/18/2024, the patient is feeling better.This is Less bronchospastic and less congested and less wheezing on today's examination. She remains on bronchodilators and steroids. No new complaints otherwise for now. Oxygenation is improved and the patient is currently on 3 L of O2 with a pulse ox of 98%. White cell count of 10.3 with a hemoglobin 10.3 and a platelet count of 296. BUN is 23 and a creatinine of 0.91. Potassium level is at 3.9. Legionella urine antigen was negative. Viral 4 Plex was also negative. The patient is doing well for now. 07/19/2024, the patient is much improved, less bronchospastic and wheezy and she is no new complaints. Bronchospastic and wheezy. Remains on IV Solu-Medrol. Made recommendation to transition the patient to prednisone burst taper. Oxygenation is also stable and the patient remains on 3 L with a pulse ox of 93%. No altered mentation. No side effects related to the steroids. The white cell count is at 10.3 from yesterday with hemoglobin on of 10.3. Electrolytes have been all within normal limits. Legionella urine antigen is negative. No other new complaints otherwise for now. Objective - Vital Signs Vital signs: Vital Signs Temp 98.1 F 07/19/24 08:00 Pulse 80 07/19/24 08:51 Resp 16 07/19/24 08:00 BP 158/76 07/19/24 08:00 Pulse Ox 98 07/19/24 08:00 FiO2 Intake & Output 07/18/24 07/19/24 07/19/24 18:59 06:59 18:59 Intake Total 240 222 Output Total 350 550 Balance -110 -328 Intake: Oral 240 222 Output: Urine 350 550 Other: Voiding Method External Catheter Indwelling Catheter Indwelling Catheter - Exam GENERAL EXAM: Alert, 68-year-old white female, weak and unable to sit up in bed without assistance, comfortable in no apparent distress. HEAD: Normocephalic and atraumatic EYES: Normal reaction of pupils, equal size. NOSE: Clear with pink turbinates. THROAT: No erythema or exudates. NECK: No masses, no JVD. CHEST: No chest wall deformity. Right chest Mediport LUNGS: Equal air entry with diminished lung sounds bilaterally and throughout. No crackles, wheezes, rhonchi. On 4 L/min nasal cannula. No conversational dyspnea or accessory muscle use while at rest CVS: S1 and S2 normal with no audible murmur, regular rhythm. No extra heart sounds ABDOMEN: No hepatosplenomegaly, active bowel sounds, no guarding or rigidity. SPINE: No scoliosis or deformity SKIN: No rashes CENTRAL NERVOUS SYSTEM: No focal deficits, tone is normal in all 4 extremities. EXTREMITIES: There is no peripheral edema, clubbing, or cyanosis. Peripheral pulses are intact. - Labs CBC & Chem 7: 07/18/24 03:49 07/18/24 03:43 Labs: Microbiology - Last 24 Hours (Table) 07/16/24 15:31 Blood Culture - Preliminary Blood Assessment and Plan Assessment: acute COPD exacerbation Acute hypoxemic respiratory failure, currently on 3 L/min nasal cannula History of paroxysmal atrial fibrillation, currently sinus mechanism, anticoagulated on Eliquis Hypertension History of frequent urinary tract infections History of lupus, with previous immunotherapy infusion History of RA History of hypothyroidism History of osteoarthritis and multiple previous orthopedic surgeries Gait dysfunction Former tobacco smoker ECF resident Anxiety/depression Plan: Clinically improving Less bronchospastic and wheezy compared to yesterday, the patient continues to improve We will continue same treatment chest x-ray which shows a stable cardiac silhouette, suspect tiny bilateral pleural effusions, right chest Mediport and loop recorder. No obvious focal infiltrates or evidence of pneumonia, pneumothoraces, nodules or masses. Viral screen negative for influenza, RSV, COVID Continue DuoNebs Symbicort Hailer Discontinue Solu-Medrol and start the patient on prednisone burst taper Continue supplemental oxygen to maintain oxygen saturation of 92% or greater Hemodynamically stable. Labs were reviewed. Will continue to follow. Procalcitonin level is at 0.48. UA was negative. Discharge within next 24 hours
[2024-07-20 08:49] VITALS: BP 138/74; RESP 15; TEMP 98.2
[2024-07-20] MEDS: predniSONE 20 MG TAB PO SCH (08:52)
[2024-07-20 12:53] VITALS: PULSE 86
--- NOTE | 2024-07-20 13:27 | P.DS ---
Providers Date of admission: 07/16/24 17:26 Expected date of discharge: 07/20/24 Attending physician: Jessica Johnson Consults: 07/16/24 21:38 Consult Physician Routine Consulting Provider: Zion Boston Consult Reason/Comments: COPD exac Do you want consulting provider notified?: Yes, Notify in am Primary care physician: Loren Zazueta DO Hospital Course: Discharge diagnoses; Acute hypoxic respiratory failure Acute COPD exacerbation Hyponatremia Hyperkalemia Acute transaminitis Hypertension History of frequent urinary tract infections History of lupus, with previous immunotherapy infusion History of RA History of hypothyroidism History of osteoarthritis and multiple previous orthopedic surgeries Gait dysfunction Anxiety/depression Hospital course; patient is a 68-year-old lady with past medical history significant for atrial fibrillation, hypertension, COPD who was sent in from [facility] for shortness of breath. Most of the history has been obtained from the EMR according to which patient has been complaining of shortness of breath for the last few days. Patient stated that she is short of breath at rest. Patient also complaining of cough. There is no complaint of fever or chills. Patient does not ambulate. Patient denies any chest pain but there is no complaint of orthopnea or PND. There is no complaint of swelling of feet. Because of shortness of breath, patient was found to be hypoxemic and was placed on oxygen. Because of shortness of breath, patient brought to the ER Initial lab work done in the ER showed WBC 9.3, hemoglobin 11, platelet count 267, sodium 131, potassium 5.2, BUN 20, creatinine 0.94, glucose 100, calcium 8.3, magnesium 2.6, AST 87, ALT 84 alk phos 154 UA negative for infection Influenza A not detected Influenza B not detected RSV not detected COVID-19 not detected EKG done in the ER showed heart rate of , no ST segment elevation or depression seen, no T-wave inversions seen. Chest x-ray done in the ER showed tiny pleural effusion with no other significant abnormality seen Patient admitted to internal medicine service 07/18. Patient seen and examined. States breathing has improved. Complaining o f constipation. Patient is currently on stool softeners. Vital signs stable 07/19. Patient seen and examined. Breathing has improved. Patient is going of anxiety secondary to IV Solu-Medrol. Will DC IV Solu-Medrol and switch to oral prednisone. Possible discharge Next 24 hours 07/20. Patient seen and examined. Being discharged on prednisone for 4 days and then go back on her daily regimen of prednisone. Patient cleared by pulmonology for discharge PHYSICAL EXAMINATION: GENERAL: The patient is alert and oriented x3, not in any acute distress. Well developed, well nourished. HEENT: Pupils are round and equally reacting to light. EOMI. No scleral icterus. No conjunctival pallor. Normocephalic, atraumatic. No pharyngeal erythema. No thyromegaly. CARDIOVASCULAR: S1 and S2 present. No murmurs, rubs, or gallops. PULMONARY: Chest is clear to auscultation, no wheezing or crackles. ABDOMEN: Soft, nontender, nondistended, normoactive bowel sounds. No palpable organomegaly. MUSCULOSKELETAL: No joint swelling or deformity. EXTREMITIES: No cyanosis, clubbing, or pedal edema. NEUROLOGICAL: Gross neurological examination did not reveal any focal deficits. SKIN: No rashes. Dictation was produced using [employer] dictation software. please excuse any grammatical, word or spelling errors. Patient Condition at Discharge: Stable Plan - Discharge Summary Discharge Rx Participant: No New Discharge Prescriptions: New traMADol HCl [Ultram] 100 mg PO Q6H PRN 3 Days #9 tab NS PRN Reason: Pain predniSONE [Deltasone] 40 mg PO DAILY #4 tab Continue Potassium Chloride ER [K-Dur 20] 20 meq PO DAILY Bumetanide [BUMEX] 2 mg PO BID@0700,1100 traZODone HCL 300 mg PO HS traZODone HCL [Desyrel] 50 mg PO HS Montelukast [Singulair] 10 mg PO HS Mirabegron [Myrbetriq] 50 mg PO DAILY Metoprolol Succinate [Metoprolol Succinate ER] 12.5 mg PO DAILY Fluticasone Nasal [place] [Flonase Nasal [place]] 1 spr EA NOSTRIL DAILY Fluticasone Propion/Salmeterol [Advair 250-50 Diskus] 1 puff INHALATION RT- BID Butalb/APAP/Caff 50-325-40Mg [Fioricet 50-325-40] 1 tab PO Q4H PRN PRN Reason: severe headache Albuterol Inhaler [Ventolin Hfa Inhaler] 2 puff INHALATION RT-Q4H PRN PRN Reason: Shortness Of Breath Or Wheezing Omeprazole [PriLOSEC] 20 mg PO BID Naloxone HCl 0.4 mg IM DIRECTED PRN PRN Reason: opioid overdose Ferrous Sulfate [Iron (65 MG Elemental)] 325 mg PO HS Docusate Sodium [Dok] 100 mg PO BID cloNIDine HCL [Catapres] 0.1 mg PO Q24H PRN PRN Reason: SBP>170 Ascorbic Acid [Vitamin C] 500 mg PO DAILY@0700 Acetaminophen [Tylenol 8 Hour] 650 mg PO Q6H PRN PRN Reason: Pain Apixaban [Eliquis] 5 mg PO BID tiZANidine [Zanaflex] 2 mg PO Q8HR PRN PRN Reason: Muscle Spasm Metamucil Smooth Texture 58.6% Oral Powder 1 packet PO Q8H PRN PRN Reason: Constipation Sennosides [Senokot] 17.2 tab PO BID Lactobacillus Acidophilus [Acidophilus] 1 cap PO BID Ergocalciferol [Vitamin D2 (1250 Mcg = 10164 Iu)] 1,250 mcg PO TU@0700 predniSONE 5 mg PO DAILY Ipratropium-Albuterol Nebulize [Duoneb 0.5 mg-3 mg/3 ml Soln] 3 ml INHALATION RT-Q4H Levothyroxine Sodium [Synthroid] 50 mcg PO DAILY@0500 DULoxetine HCL [Cymbalta] 60 mg PO HS Naloxone HCl 4 mg NASAL DIRECTED PRN PRN Reason: opioid overdose polyethylene glycoL 3350 [Miralax] 17 gm PO BID fluocinolone acetonide oiL [fluocinolone acetonide oiL 0.01% (Otic)] 2 drops BOTH EARS Q2D@2100 Lanolin/Mineral Oil [Eucerin Original Lotion] 1 applic TOPICAL HS Dicyclomine HCl 20 mg PO TID@0700,1300,1900 Cyanocobalamin (Vitamin B-12) [Vitamin B-12] 1,000 mcg PO HS Cetirizine HCl [Zyrtec] 10 mg PO DAILY Magnesium Hydroxide [Milk of Magnesia] 2,400 mg PO DAILY PRN PRN Reason: Constipation Clopidogrel [Plavix] 75 mg PO HS Loperamide HCl [Imodium A-D] 2 - 4 mg PO QID PRN PRN Reason: Diarrhea Calcium Carbonate [Tums] 500 mg PO TID@0600,1100,1600 Ocular Vitamins 1 tab PO BID Etanercept [Enbrel] 50 mg SQ WE guaiFENesin [guaiFENesin ER] 600 mg PO Q12H Pregabalin [Lyrica] 50 mg PO BID 3 Days #6 cap ALPRAZolam [Xanax] 0.5 mg PO TID 3 Days #9 tab Discontinued Tramadol 100mg 100 mg PO Q6H Discharge Medication List Bumetanide [BUMEX] 2 mg PO BID@0700,1100 01/23/23 [History] DULoxetine HCL [Cymbalta] 60 mg PO HS 01/23/23 [History] Fluticasone Nasal [place] [Flonase Nasal [place]] 1 spr EA NOSTRIL DAILY 01/23/23 [History] Levothyroxine Sodium [Synthroid] 50 mcg PO DAILY@0500 01/23/23 [History] Metoprolol Succinate [Metoprolol Succinate ER] 12.5 mg PO DAILY 01/23/23 [History] Mirabegron [Myrbetriq] 50 mg PO DAILY 01/23/23 [History] Montelukast [Singulair] 10 mg PO HS 01/23/23 [History] Potassium Chloride ER [K-Dur 20] 20 meq PO DAILY 01/23/23 [History] traZODone HCL 300 mg PO HS 01/23/23 [History] traZODone HCL [Desyrel] 50 mg PO HS 01/23/23 [History] Albuterol Inhaler [Ventolin Hfa Inhaler] 2 puff INHALATION RT-Q4H PRN 07/04/23 [History] Butalb/APAP/Caff 50-325-40Mg [Fioricet 50-325-40] 1 tab PO Q4H PRN 07/04/23 [History] Fluticasone Propion/Salmeterol [Advair 250-50 Diskus] 1 puff INHALATION RT-BID 07/04/23 [History] Cetirizine HCl [Zyrtec] 10 mg PO DAILY 03/27/24 [History] Cyanocobalamin (Vitamin B-12) [Vitamin B-12] 1,000 mcg PO HS 03/27/24 [History] Dicyclomine HCl 20 mg PO TID@0700,1300,1900 03/27/24 [History] Docusate Sodium [Dok] 100 mg PO BID 03/27/24 [History] Ferrous Sulfate [Iron (65 MG Elemental)] 325 mg PO HS 03/27/24 [History] Lanolin/Mineral Oil [Eucerin Original Lotion] 1 applic TOPICAL HS 03/27/24 [History] Naloxone HCl 0.4 mg IM DIRECTED PRN 03/27/24 [History] Naloxone HCl 4 mg NASAL DIRECTED PRN 03/27/24 [History] Omeprazole [PriLOSEC] 20 mg PO BID 03/27/24 [History] fluocinolone acetonide oiL [fluocinolone acetonide oiL 0.01% (Otic)] 2 drops BOTH EARS Q2D@2100 03/27/24 [History] polyethylene glycoL 3350 [Miralax] 17 gm PO BID 03/27/24 [History] Acetaminophen [Tylenol 8 Hour] 650 mg PO Q6H PRN 06/09/24 [History] Ascorbic Acid [Vitamin C] 500 mg PO DAILY@0700 06/09/24 [History] Magnesium Hydroxide [Milk of Magnesia] 2,400 mg PO DAILY PRN 06/09/24 [History] cloNIDine HCL [Catapres] 0.1 mg PO Q24H PRN 06/09/24 [History] Apixaban [Eliquis] 5 mg PO BID 06/11/24 [History] Clopidogrel [Plavix] 75 mg PO HS 06/11/24 [History] Calcium Carbonate [Tums] 500 mg PO TID@0600,1100,1600 06/30/24 [History] Ergocalciferol [Vitamin D2 (1250 Mcg = 15824 Iu)] 1,250 mcg PO TU@0700 06/30/24 [History] Lactobacillus Acidophilus [Acidophilus] 1 cap PO BID 06/30/24 [History] Loperamide HCl [Imodium A-D] 2 - 4 mg PO QID PRN 06/30/24 [History] Metamucil Smooth Texture 58.6% Oral Powder 1 packet PO Q8H PRN 06/30/24 [History] Ocular Vitamins 1 tab PO BID 06/30/24 [History] Sennosides [Senokot] 17.2 tab PO BID 06/30/24 [History] predniSONE 5 mg PO DAILY 06/30/24 [History] tiZANidine [Zanaflex] 2 mg PO Q8HR PRN 06/30/24 [History] Etanercept [Enbrel] 50 mg SQ WE 07/16/24 [History] Ipratropium-Albuterol Nebulize [Duoneb 0.5 mg-3 mg/3 ml Soln] 3 ml INHALATION RT-Q4H 07/16/24 [History] guaiFENesin [guaiFENesin ER] 600 mg PO Q12H 07/16/24 [History] ALPRAZolam [Xanax] 0.5 mg PO TID 3 Days #9 tab 07/20/24 [Rx] Pregabalin [Lyrica] 50 mg PO BID 3 Days #6 cap 07/20/24 [Rx] predniSONE [Deltasone] 40 mg PO DAILY #4 tab 07/20/24 [Rx] traMADol HCl [Ultram] 100 mg PO Q6H PRN 3 Days #9 tab NS 07/20/24 [Rx] Follow up Appointment(s)/Referral(s): Loren Zazueta DO [Primary Care Provider] - 1-2 days Zion Boston MD [STAFF PHYSICIAN] - 1 Week Discharge Disposition: TRANSFER TO SNF/ECF
--- NOTE | 2024-07-20 15:00 | P.PN ---
Subjective Progress Note Date: 07/20/24 Patient is a 68-year-old female, sent in from her ECF, [facility], with symptoms of dyspnea, cough, lethargy, and reduced oral intake. She has been requiring supplemental oxygen at outside facility. She is a poor historian, and often contradicts herself. Documented past medical history including atrial fibrillation, hypertension, rheumatoid arthritis, lupus, former tobacco dependence, and COPD. Also, she has had multiple orthopedic surgeries, nonambulatory, and unable to take care of herself independently. Workup in the emergency department including a chest x-ray which shows a stable cardiac silhouette, suspect tiny bilateral pleural effusions, right chest Mediport and loop recorder. No obvious focal infiltrates or evidence of pneumonia, pneumothoraces, nodules or masses. Viral screen negative for influenza, RSV, COVID. She is known to have frequent urinary tract infections, recently underwent cystoscopy in May,. Urinalysis unremarkable for infection. CBC: WBC count 9.3, hemoglobin 11, platelets 267. CMP: Sodium 131, potassium 5.2, chloride 92, serum bicarb 33, BUN 20, creatinine 0.94, glucose 100. Lactic 0.7. LFTs mildly elevated. Troponin 0.019, NT proBNP 706. EKG: Normal sinus, rate 88 bpm, RBB pattern, no obvious acute ischemic changes. VBG with a pH of 7.39, pCO2 57. A pulmonary consult was placed for COPD. Patient currently being evaluated in observation unit. She is resting comfortably on 4 L/min nasal cannula. Alert and oriented x 3. On interview, states she had a cold approximately 1 month ago. She has been short of breath since then. Occasional nonproductive cough. Sleeping a lot. Reduced appetite. She is unfamiliar with her inhalers. No longer smokes cigarettes. It appears she has a new patient visit in the pulmonary office 07/31/2024. Denies any chest pain, heart palpitations, lightheadedness/syncope, lower extremity edema. A secondary concern of the patient, is constipation. Reportedly, has not had a bowel moveme nt in 5 days. Abdomen is soft and does not appear nonacute. States this is a common problem. Receiving Senokot and as needed MiraLAX. Most recent vital signs: Temperature 98.9 F, heart rate 74 bpm, blood pressure 132/77 mmHg, nontachypneic, SpO2 recorded at 96% on 4 L/min nasal cannula. 07/18/2024, the patient is feeling better.This is Less bronchospastic and less congested and less wheezing on today's examination. She remains on bronchodilators and steroids. No new complaints otherwise for now. Oxygenation is improved and the patient is currently on 3 L of O2 with a pulse ox of 98%. White cell count of 10.3 with a hemoglobin 10.3 and a platelet count of 296. BUN is 23 and a creatinine of 0.91. Potassium level is at 3.9. Legionella urine antigen was negative. Viral 4 Plex was also negative. The patient is doing well for now. 07/19/2024, the patient is much improved, less bronchospastic and wheezy and she is no new complaints. Bronchospastic and wheezy. Remains on IV Solu-Medrol. Made recommendation to transition the patient to prednisone burst taper. Oxygenation is also stable and the patient remains on 3 L with a pulse ox of 93%. No altered mentation. No side effects related to the steroids. The white cell count is at 10.3 from yesterday with hemoglobin on of 10.3. Electrolytes have been all within normal limits. Legionella urine antigen is negative. No other new complaints otherwise for now. 07/20/2024, patient is feeling better. Less short of breath. Less bronchospastic and wheezy. No new complaints. No new labs are available from today. Remains on oxygen at 3 L with a pulse ox of 97%. No other significant events overnight. Objective - Vital Signs Vital signs: Vital Signs Temp 98.2 F 07/20/24 08:00 Pulse 80 07/20/24 09:12 Resp 15 07/20/24 08:00 BP 138/74 07/20/24 08:00 Pulse Ox 97 07/20/24 09:07 FiO2 Intake & Output 07/19/24 07/20/24 07/20/24 18:59 06:59 18:59 Intake Total 118 Output Total 600 1000 Balance -482 -1000 Intake: Oral 118 Output: Urine 600 1000 Other: Voiding Method Indwelling Catheter Indwelling Catheter Indwelling Catheter - Exam GENERAL EXAM: Alert, 68-year-old white female, weak and unable to sit up in bed without assistance, comfortable in no apparent distress. HEAD: Normocephalic and atraumatic EYES: Normal reaction of pupils, equal size. NOSE: Clear with pink turbinates. THROAT: No erythema or exudates. NECK: No masses, no JVD. CHEST: No chest wall deformity. Right chest Mediport LUNGS: Equal air entry with diminished lung sounds bilaterally and throughout. No crackles, wheezes, rhonchi. On 4 L/min nasal cannula. No conversational dyspnea or accessory muscle use while at rest CVS: S1 and S2 normal with no audible murmur, regular rhythm. No extra heart sounds ABDOMEN: No hepatosplenomegaly, active bowel sounds, no guarding or rigidity. SPINE: No scoliosis or deformity SKIN: No rashes CENTRAL NERVOUS SYSTEM: No focal deficits, tone is normal in all 4 extremities. EXTREMITIES: There is no peripheral edema, clubbing, or cyanosis. Peripheral pulses are intact. - Labs CBC & Chem 7: 07/18/24 03:49 07/18/24 03:43 Labs: Microbiology - Last 24 Hours (Table) 07/16/24 15:31 Blood Culture - Preliminary Blood Assessment and Plan Assessment: acute COPD exacerbation Acute hypoxemic respiratory failure, currently on 3 L/min nasal cannula History of paroxysmal atrial fibrillation, currently sinus mechanism, anticoagulated on Eliquis Hypertension History of frequent urinary tract infections History of lupus, with previous immunotherapy infusion History of RA History of hypothyroidism History of osteoarthritis and multiple previous orthopedic surgeries Gait dysfunction Former tobacco smoker ECF resident Anxiety/depression Plan: Remains on 3 L of oxygen by nasal cannula Clinically improving without any new complaints Less bronchospastic and wheezy compared to yesterday, the patient continues to improve We will continue same treatment chest x-ray which shows a stable cardiac silhouette, suspect tiny bilateral pleural effusions, right chest Mediport and loop recorder. No obvious focal infiltrates or evidence of pneumonia, pneumothoraces, nodules or masses. Viral screen negative for influenza, RSV, COVID Continue DuoNebs Symbicort Hailer Prednisone burst taper Continue supplemental oxygen to maintain oxygen saturation of 92% or greater Hemodynamically stable. Labs were reviewed. Will continue to follow. Procalcitonin level is at 0.48. UA was negative. Discharge hopefully today
[2024-07-22] MEDS ORDERED: ERGOCALCIFEROL 1,250 MCG (50,000 IU) CAPSULE PO SCH (07:00)
== END 2024-07-20 14:00 ==
LOC: EC 14:46 → 4SSUR 17:26 → 1SOBS 18:18 → 6NMEDSUR 07-18 15:27
PROVIDERS: ADMIT Hospitalist; ATTEND Hospitalist
DX: J44.1 Chronic obstructive pulmonary disease with (acute) exacerbation (principal); J96.01 Acute respiratory failure with hypoxia; E87.1 Hypo-osmolality and hyponatremia; E87.5 Hyperkalemia; E87.29 Other acidosis; E86.0 Dehydration; K59.00 Constipation, unspecified; I48.0 Paroxysmal atrial fibrillation; M06.9 Rheumatoid arthritis, unspecified; I10 Essential (primary) hypertension; M32.9 Systemic lupus erythematosus, unspecified; E03.9 Hypothyroidism, unspecified; M19.90 Unspecified osteoarthritis, unspecified site; R26.9 Unspecified abnormalities of gait and mobility; R74.01 Elevation of levels of liver transaminase levels; F32.A Depression, unspecified; F41.9 Anxiety disorder, unspecified; Z11.52 Encounter for screening for COVID-19; Z11.59 Encounter for screening for other viral diseases; Z79.890 Hormone replacement therapy; Z79.01 Long term (current) use of anticoagulants; Z79.02 Long term (current) use of antithrombotics/antiplatelets; Z79.899 Other long term (current) drug therapy; Z79.51 Long term (current) use of inhaled steroids; Z79.52 Long term (current) use of systemic steroids; Z79.620 Long term (current) use of immunosuppressive biologic; Z88.0 Allergy status to penicillin; Z88.1 Allergy status to other antibiotic agents; Z88.2 Allergy status to sulfonamides; Z87.440 Personal history of urinary (tract) infections; Z87.891 Personal history of nicotine dependence
CPT/HCPCS: 96376 ×3; 96365; 96366; 96375; 99285; 36415; 94640 ×9; 94760 ×2; 93005; 92610; 85379; 83880; 80053 ×3; 87449; 82803; 83605; 83735 ×2; 84484; 85025 ×2; 85610; 85730; 81003; 87040; 84145; 87636; 71046 ×2; 93970; 71275; G0378 ×7; J0456; J7512; Q9967; J2919 ×4

== ENCOUNTER 2024-09-26 08:41 | Day surgery (SDC) | payer MEDICARE, OTHER ==
[~2024-09-26 08:41] MED LIST changes: +LIDOCAINE 1% (10MG/ML) FOR IV START INTRADERMA PRN; -Pre Op ABX Message 1 EACH MISC MISCELLANE ONE
[2024-09-26] MEDS: IV FLUID CONTINUATION 1,000 ML IV ONE ×2 (10:15→11:14)
[2024-09-26 10:29] VITALS: TEMP 97.5
[2024-09-26] MEDS: IPRATROPIUM-ALBUTEROL 3 ML NEB INHALATION STA (10:42)
[2024-09-26] MEDS: LACTATED RINGERS 1,000 ML IV SCH (10:42)
[2024-09-26] MEDS ORDERED: LIDOCAINE 1% INJ 10MG/ML (20 ML MDV) ONE (11:17)
[2024-09-26] MEDS ORDERED: PROPOFOL 10 MG/ML 20 ML VIAL IV ONE (11:17)
--- NOTE | 2024-09-26 11:31 | P.PCN ---
Date of Procedure: 09/26/24 Procedure(s) Performed: BRIEF HISTORY: Patient is a 68-year-old, pleasant, white female scheduled for an upper endoscopy as a part of evaluation of dysphagia to solids for the last 1 year duration. She lost 20 pounds since onset of symptoms. She does have longstanding history of GERD and is on omeprazole 20 mg daily.. PROCEDURE PERFORMED: Esophagogastroduodenoscopy with biopsy . PREOPERATIVE DIAGNOSIS: Longstanding history of GERD and progressive dysphagia to solids. IV sedation per anesthesia. PROCEDURE: After informed consent was obtained, the patient was brought into the endoscopy unit. IV sedation was administered by Anesthesia under continuous monitoring. Initially the Olympus GIF-140 video endoscope was inserted into the mouth. Esophagus intubated without any difficulty. It was gradually advanced into the stomach and duodenum and carefully examined. The bulb and the second part of the duodenum appeared normal. The scope at this time was withdrawn to the stomach, adequately insufflated with air, and upon careful examination, mucosa of the antrum, body, cardia and the fundus appeared normal. The scope was then withdrawn into the esophagus. Small sliding-type hiatal hernia noted. The GE junction was located at 39 cm from the incisors. The esophagus appeared normal. There were no erosions or ulcerations seen. The rest of the esophagus appeared normal. There were no erosions or ulcerations or esophageal stricture identified. Multiple biopsies were done from the mid and distal esophagus to rule out eosinophilic esophagitis. The proximal cervical esophagus was carefully examined and there was no evidence of cricopharyngeal dysfunction or Zenker's diverticulum seen. The patient tolerated the procedure well. IMPRESSION: 1. Mild antral gastritis. 2. Small sliding-type hiatal hernia 3. No esophagitis, esophageal stricture or Zenker's diverticulum. RECOMMENDATIONS: The findings of this examination were discussed with the patient as well as her family. She was advised to continue with omeprazole 20 mg daily and follow antireflux measures. Follow-up with biopsy results and she will be seen in the office in 2 to 3 weeks..
[2024-09-26 11:38] VITALS: BP 155/78; PULSE 67; RESP 16
== END 2024-09-26 12:08 | disposition home or self-care (01) ==
LOC: ORWHC2ENDO 08:41
PROVIDERS: ATTEND Internal Medicine Gastroenterology
DX: K21.00 Gastro-esophageal reflux disease with esophagitis, without bleeding (principal); K44.9 Diaphragmatic hernia without obstruction or gangrene; K29.70 Gastritis, unspecified, without bleeding
CPT/HCPCS: 43239; J2003; J2704; 88305